=== PATIENT | male | born 1950 | race Caucasian/White ===

== ENCOUNTER 2020-07-22 07:54 | Inpatient (IN) ==
--- NOTE | 2020-06-30 11:25 | PAT Medication Instructions ---
Medication Instructions Date of Service June 30, 2020 Home Medications albuterol sulfate 1 inh INHALATION QID PRN aspirin [Aspir-81] 81 mg PO QAM atorvastatin 80 mg PO HS bisoprolol fumarate 5 mg PO Q2D budesonide-formoterol [Symbicort] 2 puff INHALATION BID diclofenac sodium 1 applic TOPICAL BID duloxetine 30 mg PO QAM empagliflozin [Jardiance] 10 mg PO QAM furosemide 20 mg PO QAM gabapentin 600 mg PO Q8H ipratropium-albuterol 3 ml INHALATION Q4H PRN losartan 50 mg PO QAM ] metformin 1,000 mg PO BID tramadol 50 mg PO TID PRN umeclidinium [Incruse Ellipta] 1 inh INHALATION QAM ASK your prescriber and surgeon aspirin [Aspir-81] 81 mg PO QAM STOP taking 24 hours before surgery diclofenac sodium 1 applic TOPICAL BID DO NOT take the morning of surgery empagliflozin [Jardiance] 10 mg PO QAM furosemide 20 mg PO QAM losartan 50 mg PO QAM metformin 1,000 mg PO BID Take morning of surgery With a small sip of water, OTHERWISE NOTHING TO EAT OR DRINK AFTER MIDNIGHT: albuterol sulfate 1 inh INHALATION QID PRN (use if needed; please bring rescue inhaler with you to hospital day of surgery if possible) bisoprolol fumarate 5 mg PO Q2D (if scheduled to take day of surgery) budesonide-formoterol [Symbicort] 2 puff INHALATION BID duloxetine 30 mg PO QAM gabapentin 600 mg PO Q8H ipratropium-albuterol 3 ml INHALATION Q4H PRN (if needed) tramadol 50 mg PO TID PRN (okay to take up to 4 hours prior to surgery if needed) umeclidinium [Incruse Ellipta] 1 inh INHALATION QAM Take evening before surgery albuterol sulfate 1 inh INHALATION QID PRN (if needed) atorvastatin 80 mg PO HS budesonide-formoterol [Symbicort] 2 puff INHALATION BID gabapentin 600 mg PO Q8H ipratropium-albuterol 3 ml INHALATION Q4H PRN (if needed) metformin 1,000 mg PO BID tramadol 50 mg PO TID PRN (if needed) Other Notes If you have any questions please call us at [phone] or [phone] or [phone] or [phone]
--- NOTE | 2020-07-04 12:30 | Anesthesiology Consultation ---
Date of Service July 04, 2020 Assessment & Plan (1) Encounter for pre-operative examination: Chart Review Chart Review: Pending: Refer to Additional Notes / Consult section (pending stress test, final cardiac clearance, pulm office visit note, PCP clearance and preop Covid testing ) and Patient seen in Pre Admission Testing - Awaiting stress test 07/08 and final cardiac clearance - Pulm office visit (07/06) and PCP clearance (07/11) - Check BSG AM DOS Per PAT appt on 07/04/20, pt relocated and moved from [place] to [facility] on 06/11/20 (to be closer to family). No known Covid positive contacts or Covid related symptoms. No known Covid infection in the past 90 days. Educated patient to follow up with surgeon's office regarding Covid testing. Educated on importance of self quarantining, social distancing and wearing mask in public both for the patient and household contacts. Pt seen by cardio 06/29/20= seen for cardiac evaluation with anticipated back surgery. Pt with hx of NSTEMI with 3 cardiac stents in 2013. Recently moved to [facility]. No recent anginal symptoms and activity level substantially limited secondary to underlying back pain and neurogenic claudication. "Dobutamine stress echocardiography will be ordered to assess structural heart and exclude profound ischemia. No changes made in medical regimen. Ultimate goal to proceed with surgery as planned" Teaching & Discussion Pre-Anesthesia Teaching/Discussion Notes: Instructed NPO after midnight before surgery,except medications with 15 cc of water. Medication instructions provided according to the PAT guidelines. History Surgery Operation Date: 07/22/20 11:05 Proposed Procedures p L3-S1 Decompression and Fusion, Spinal Cord Monitoring - Rodolfo Meyer DO Height/Weight Height: 5 ft 4 in Weight: 109.3 kg Allergies Allergy/AdvReac Type Severity Reaction Status Date / Time No Known Allergies Allergy Verified 06/27/20 12:43 Medications Home Medications Medication Instructions Recorded Confirmed Last Taken albuterol sulfate 1 inh INHALATION QID PRN 06/27/20 06/27/20 Unknown aspirin [Aspir-81] 81 mg PO QAM 06/27/20 06/27/20 Unknown atorvastatin 80 mg PO HS 06/27/20 06/27/20 Unknown bisoprolol fumarate 5 mg PO Q2D 06/27/20 06/27/20 Unknown budesonide-formoterol [Symbicort] 2 puff INHALATION BID 06/27/20 06/27/20 Unknown diclofenac sodium 1 applic TOPICAL BID 06/27/20 06/27/20 Unknown duloxetine 30 mg PO QAM 06/27/20 06/27/20 Unknown empagliflozin [Jardiance] 10 mg PO QAM 06/27/20 06/27/20 Unknown furosemide 20 mg PO QAM 06/27/20 06/27/20 Unknown gabapentin 600 mg PO Q8H 06/27/20 06/27/20 Unknown ipratropium-albuterol 3 ml INHALATION Q4H PRN 06/27/20 06/27/20 Unknown losartan 50 mg PO QAM 06/27/20 06/27/20 Unknown metformin 1,000 mg PO BID 06/27/20 06/27/20 Unknown tramadol 50 mg PO TID PRN 06/27/20 06/27/20 Unknown umeclidinium [Incruse Ellipta] 1 inh INHALATION QAM 06/27/20 06/27/20 Unknown Past Medical History Medical History (Updated 07/04/20 @ 13:04 by Marcia Kramer PA-C) CAD (coronary artery disease) S/p 3 stents in 2013 to prox Cx and RCA Chronic obstructive pulmonary disease Well controlled and stable per patient Diabetes mellitus, type 2 Stable - fasting glucose usually in 130s GERD (gastroesophageal reflux disease) Well controlled and stable History of kidney stones No current issues Hyperlipidemia Hypertension Myocardial Infarction 2013 VU (obstructive sleep apnea) Possible Exercise / Class Metabolic Activity III < 4 Walking/Shop/Light housework (one flight of stairs - no chest pain, would get SOB ) Past Family History Family History Mother Family history of diabetes mellitus Father Family history of diabetes mellitus Other No family history of adverse response to anesthesia Past Surgical History Surgical History (Updated 07/04/20 @ 13:04 by Marcia Kramer PA-C) History of amputation of finger Left 2nd finger History of colonoscopy History of esophagogastroduodenoscopy (EGD) History of heart artery stent X 3 (2013 AT [facility] History of tooth extraction Past Anesthesia History No Hx of Anesthesia Complications and No Family Hx of Anesthesia Complications History of PONV No Hx of PONV and No Hx of Motion Sickness Social History Smoking Status: Former smoker tobacco type: cigarettes Do You Dip or Chew Tobacco: No Smoking End Date: 15 YEARS AGO Hx Alcohol Use: No Hx Substance Use: No substance use type: does not use Review of Systems Hx of sleep study - inconclusive per patient. Patient denies chest pain, shortness of breath, dyspnea on exertion, cough, wheezing, palpitations. No hx of seizures, stroke.. No hx of blood clots or blood transfusions Physical Exam Vital Signs VITALS BP 115/71 P 61 TEMP 98.4 SP02 94% RESP 16 Constitutional no acute distress ENMT Mouth: no TMJ clicking Thyromental Distance: > or= 3.5 Finger Breadths (3.5) Mallampati Class: II Missing all teeth Neck + short neck and + thick neck; neck extension not limited Respiratory normal respiratory effort; no respiratory distress Auscultation: lungs clear to auscultation bilaterally and + diminished lung sounds (mildly throughout ); no wheezes Cardiovascular Rate/Rhythm: regular rate and regular rhythm Heart Sounds: no murmur Vessels: no carotid bruit Musculoskeletal Spine: no pain with cervical ROM Extremities: extremities normal to inspection (with exception to left 2nd finger partial amputation ) Psychiatric Orientation: alert Testing Laboratory Results 07/04/20 12:53 07/04/20 12:53 PT 10.1 Seconds (9.0-12.0) 07/04/20 12:53 INR 1.0 (0.9-1.1) 07/04/20 12:53 APTT 24.0 Seconds (21.0-31.0) 07/04/20 12:53 Hemoglobin A1c 6.6 % (4.5-5.6) H 07/04/20 12:53 Urine Color Yellow 07/04/20 12:53 Urine Appearance Clear (Clear) 07/04/20 12:53 Urine pH 5.5 (4.5-7.5) 07/04/20 12:53 Ur Specific [place] 1.032 (1.000-1.030) H 07/04/20 12:53 Urine Protein Negative (Negative) 07/04/20 12:53 Urine Glucose (UA) 3+ (Negative) H 07/04/20 12:53 Urine Ketones Negative (Negative) 07/04/20 12:53 Urine Nitrite Negative (Negative) 07/04/20 12:53 Ur Leukocyte Esterase Negative (Negative) 07/04/20 12:53 Blood Type B Positive 07/04/20 12:53 Antibody Screen NEGATIVE 07/04/20 12:53 Electrocardiogram Date: 07/04/20 Findings: + SB @ (57bpm) Otherwise normal EKG per cardio. Chest X-Ray Date: 07/04/20 Findings: + NAD and + cardiomegaly (borderline )
--- NOTE | 2020-07-04 13:32 | XRay Report ---
XR chest Pre-admission PA/Lat CLINICAL HISTORY: Preoperative evaluation. COMPARISON STUDY: No previous studies for comparison. FINDINGS: Lung volumes are normal. Lungs are clear. There is no pneumothorax or pleural effusion. The re is borderline cardiomegaly. Mediastinal contours are normal. There is no evidence for pulmonary ed delmar. IMPRESSION: No acute cardiopulmonary findings. ACT 112: Negative or not required by law. Electronically signed by: Chai Smith M.D. 07/04/2020 1:31 PM
[2020-07-04 14:04] LABS: Basophils # (auto) 0.03 K/uL (0-0.2); Basophils % (auto) 0.4 %; Eosinophils # (auto) 0.18 K/uL (0-0.5); Eosinophils % (auto) 2.3 %; Hematocrit (blood only) 42.5 % (42-52); Hemoglobin 14.2 g/dL (14.0-18.0); Immature Granulocytes # (auto) 0.01 K/uL (0.00-0.02); Immature Granulocytes % (auto) 0.1 %; Lymphocytes # (auto) 1.41 K/uL (1.2-3.4); Lymphocytes % (auto) 17.7 %; Mean Corpuscular Hemoglobin 29.6 pg (25-34); Mean Corpuscular Hgb Conc 33.4 g/dL (32-36); Mean Corpuscular Volume 88.5 fL (80-100); Mean Platelet Volume 10.8 fL (7.4-10.4); Monocytes # (auto) 0.73 K/uL (0.11-0.59); Monocytes % (auto) 9.2 %; Neutrophils # (auto) 5.59 K/uL (1.4-6.5); Neutrophils % (auto) 70.3 %; Platelet Count 217 K/uL (130-400); RDW Coefficient of Variation 14.5 % (11.5-14.5); White Blood Count 7.95 K/uL (4.8-10.8)
[2020-07-04 14:16] LABS: Appearance Urine Clear (Clear); Bilirubin Urine Negative (Negative); Blood Urine Negative (Negative); Color Urine Yellow; Glucose Urine UA 3+ (Negative); Ketones Urine Negative (Negative); Leukocyte Esterase Urine Negative (Negative); Nitrite Urine Negative (Negative); Protein Urine Negative (Negative); Specific Gravity Urine 1.032 (1.000-1.030); Urobilinogen Urine Negative (Negative); pH Urine 5.5 (4.5-7.5)
[2020-07-04 14:20] LABS: BUN Creatinine Ratio 15.7 (10-20); Calcium 9.1 mg/dl (8.5-10.1); Creatinine Clr Calc Pharmacy 84.7 ml/min; Est GFR (African American) 98.6; Est GFR (Non-African American) 85.1; Potassium 3.8 mmol/L (3.5-5.1)
[2020-07-04 14:21] LABS: Partial Thromboplastin Ratio 0.9; Prothrombin Time 10.1 Seconds (9.0-12.0)
--- NOTE | 2020-07-04 14:46 | Electrocardiogram Report ---
Test Reason : Blood Pressure : / mmHG Vent. Rate : 057 BPM Atrial Rate : 057 BPM P-R Int : 196 ms QRS Dur : 090 ms QT Int : 404 ms P-R-T Axes : 000 069 054 degrees QTc Int : 393 ms Sinus bradycardia Otherwise normal ECG No previous ECGs available Confirmed by Anirudh Chaparro ([id number]) on 07/04/2020 2:46:31 PM Referred By: Rodolfo Meyer Confirmed By:Anirudh Chaparro
[2020-07-05 05:59] LABS: Estimated Average Glucose 143 mg/dl; Hemoglobin A1C 6.6 % (4.5-5.6)
[~2020-07-22 07:54] MED LIST: ACETAMINOPHEN 500 MG TAB PO SCH; CeleBREX 200 MG CAP PO SCH; GABAPENTIN 300 MG CAP PO SCH; LR 15ML/HR IV SCH; ceFAZolin 2000MG 2,000 MG/15 ML SYR IV SCH
[2020-07-22] MEDS ORDERED: DEXAMETHASONE SOD INJ 4 MG/ML VIAL ONE (08:12)
[2020-07-22] MEDS ORDERED: fentaNYL citrate 100 MCG/2 ML VIAL ONE ×2 (08:12→08:13)
[2020-07-22] MEDS ORDERED: GLYCOPYRROLATE 0.2 MG/ML VIAL ONE (08:12)
[2020-07-22] MEDS ORDERED: ROCURONIUM BROMIDE 10 MG/ML 5 ML VIAL IV ONE ×3 (08:12→10:48)
[2020-07-22] MEDS ORDERED: ONDANSETRON INJ 2 MG/ML 2 ML VIAL ONE (08:12)
[2020-07-22] MEDS ORDERED: PROPOFOL IV EMULSION 10 MG/ML 20 ML VIAL IV ONE (08:12)
[2020-07-22] MEDS ORDERED: NEOSTIGMINE METHYLSULFATE 1 MG/ML 10ML VIAL ONE (08:12)
--- NOTE | 2020-07-22 09:38 | History & Physical Bridge Note ---
Date of Service July 22, 2020 History & Physical Bridge Note I have examined the patient, reviewed the History & Physical and in the interval since the performance of the History & Physical I have noted the following changes of clinical significance: no changes noted
--- NOTE | 2020-07-22 09:39 | History & Physical Report ---
Date of Service July 22, 2020 Assessment & Plan (1) Neurogenic claudication due to lumbar spinal stenosis: Admission and Anticipated Discharge Date Admission Date: L3-S1 decompression fusion History of Present Illness Chief Complaint: Back and bilateral leg pain Primary Care Provider: Rahat Strickland MD This is a 70-year-old male presents with chronic persistent back and bilateral leg pain. Failing since course of nonoperative care is here for surgical invention. Allergies Allergy/AdvReac Type Severity Reaction Status Date / Time No Known Allergies Allergy Verified 07/22/20 08:22 Home Medications Medication Instructions Recorded Confirmed Type albuterol sulfate 1 inh INHALATION QID PRN 06/27/20 07/22/20 History aspirin [Aspir-81] 81 mg PO QAM 06/27/20 07/22/20 History atorvastatin 80 mg PO HS 06/27/20 07/22/20 History bisoprolol fumarate 5 mg PO Q2D 06/27/20 07/22/20 History budesonide-formoterol [Symbicort] 2 puff INHALATION BID 06/27/20 07/22/20 History diclofenac sodium 1 applic TOPICAL BID 06/27/20 07/22/20 History duloxetine 30 mg PO QAM 06/27/20 07/22/20 History empagliflozin [Jardiance] 10 mg PO QAM 06/27/20 07/22/20 History furosemide 20 mg PO QAM 06/27/20 07/22/20 History gabapentin 600 mg PO Q8H 06/27/20 07/22/20 History ipratropium-albuterol 3 ml INHALATION Q4H PRN 06/27/20 07/22/20 History losartan 50 mg PO QAM 06/27/20 07/22/20 History metformin 1,000 mg PO BID 06/27/20 07/22/20 History tramadol 50 mg PO TID PRN 06/27/20 07/22/20 History umeclidinium [Incruse Ellipta] 1 inh INHALATION QAM 06/27/20 07/22/20 History Past Med/Surg History Medical History (Updated 07/22/20 @ 09:38 by Rodolfo Meyer DO) CAD (coronary artery disease) S/p 3 stents in 2013 to prox Cx and RCA Chronic obstructive pulmonary disease Well controlled and stable per patient Diabetes mellitus, type 2 Stable - fasting glucose usually in 130s GERD (gastroesophageal reflux disease) Well controlled and stable History of kidney stones No current issues Hyperlipidemia Hypertension Myocardial Infarction 2013 VU (obstructive sleep apnea) Possible Surgical History History of amputation of finger Left 2nd finger History of colonoscopy History of esophagogastroduodenoscopy (EGD) History of heart artery stent X 3 (2013 AT [facility] History of tooth extraction Family History Mother Family history of diabetes mellitus Father Family history of diabetes mellitus Other No family history of adverse response to anesthesia Social History Smoking Status: Former smoker Smoking End Date: 15 YEARS AGO; Second Hand Exposure: No; Do You Dip or Chew Tobacco: No; Tobacco Cessation Education Requested by Patient: No Hx Alcohol Use: No Hx Substance Use: No Preferred Language: Mosotho Test Consultant Required: No Beliefs That Will Affect Care: None Current Living Situation: Alone Feels Safe at Home: Yes Safety Concerns: Feels Safe At This Time Assistive Devices: Denture - Upper, Glasses and Nebulizer Physical Exam Physical Exam: Patient is alert and oriented Heart regular in rhythm Lungs clear to auscultation Results & Data ([facility]) Vital Signs (Past 12 Hours) Vital Signs Temp Pulse Resp BP Pulse Ox 07/22/20 08:48 36.8 C 84 20 174/90 H 95
[2020-07-22] MEDS ORDERED: BUPIVACAINE/EPINEPHRINE 0.5% MPF 1:200,000 30 ML VIAL ONE (10:02)
[2020-07-22] MEDS ORDERED: HYDROmorphone INJ 2 MG/ML SYR/VIAL IV PRN (10:06)
[2020-07-22] MEDS ORDERED: ATROPINE SULFATE 0.1 MG/ML 10ML SYR IV PRN (10:06)
[2020-07-22] MEDS ORDERED: ONDANSETRON INJ 2 MG/ML 2 ML VIAL IV PRN ×2 (10:06→14:22)
[2020-07-22] MEDS ORDERED: ePHEDrine sulfate 50 MG/ML AMP IV PRN (10:06)
[2020-07-22] MEDS ORDERED: PHENYLEPHRINE 100MCG/ML 5ML SYR ONE (10:46)
[2020-07-22] MEDS ORDERED: FLOSEAL HEMOSTATIC MATRIX 10ML TOP ONE (11:33)
--- NOTE | 2020-07-22 12:18 | Operative Report ---
Post Operative Report Pre & Post Diagnosis Operation Date: 07/22/20 09:25 Pre-Op Diagnosis: Spinal Stenosis, Lumbar Region with Neurogenic Claudication Spondylolisthesis L4-L5 Morbid obesity Post-Op Diagnosis: Same I identified the patient and participated in the time-out.: Yes Procedure Operation Date: 07/22/20 09:25 Actual Procedures #1 lumbar decompression with bilateral medial facetectomies and foraminotomies L3-4 and L4-5 per #2 posterior spinal fusion L4-L5. #3 placement of posterior instrumentation L4-L5. #4 interbody fusion L4-5. #5 placement peek cage 14 x 26 mm at L4-5. #6 placement locally harvested morselized autograft in the posterior gutters. #7 placement infuse collagen sponge, master graft in the posterior lateral gutters and I factor interbody space. Surgeon Rodolfo Meyer, DO Ruling Machine Feeder Benjamin Ryan Estimated Blood Loss 350 Findings See Below The patient is 5 foot 4 inches tall weighing over 108 kg with a BMI of 41. The patient's body habitus did create significant technical difficulty requiring her deepest retractors longus instruments in order to perform his procedure. This had at least 50% increase to the operative time. Specimens None Indications This is a 70-year-old male who presents with above-mentioned diagnosis after failing course of nonoperative care is here for the above-mentioned procedure. Description of Procedure Patient was met with identified informed consent obtained. Patient was then taken to the operative suite underwent ablation placed in a prone position injectable top Timmy frame. All bony prominences well-padded eyes inspected to ensure no external pressure placed upon the. This point the lumbar spine was prepped and draped in a sterile fashion. Sharp dissection with the assistance of Bovie cautery performed down to and exposing the lamina and transverse processes of L4 and L5 bilaterally. From a caudal cephalad fashion complete laminectomy L4 partial laminectomy L3 was performed including bilateral medial facetectomies and foraminotomies addressing severe spinal stenosis. Pedicle screws then placed in L4 and L5 bilaterally with the assistance of fluoroscopy and the properly sized winsome placed. By way of a transforaminal approach on the left complete discectomy was performed endplates curetted to subcortical being bone and a 14 x 26 mm peek cage filled with I factor tapped in position. The rods then locked in final position bilaterally. The transverse processes of L4 and L5 burred to subcortical bleeding bone. Infuse collagen sponge master graft local autograft was placed in the posterior gutters. 15 round RENÉ drain inserted. The incision was then closed with 1 Vicryl fascia 2-0 Vicryl subcutaneously and 4 Monocryl for final skin closure. Steri-Strip sterile dressing was placed. Patient awakened taken to PACU in stable condition. Please note spinal cord monitoring was utilized at the procedure no changes noted. Lastly Benjamin Ryan was present at the entire surgery involved the patient positioning complex portions of the surgery and final skin closure. I attest to the content of the Intraoperative Record and any orders documented therein. Any exceptions are noted below.
[2020-07-22] MEDS: fentaNYL citrate 100 MCG/2 ML VIAL IV PRN ×2 (13:02→13:07)
--- NOTE | 2020-07-22 13:32 | Fluoroscopy Report ---
INTRAOPERATIVE RADIOGRAPHS CLINICAL HISTORY: L4-L5 spinal fusion. Fluoroscopy time: 22 seconds. FINDINGS: 2 spot fluoroscopic views of the lumbar spine are presented. There has been discectomy at L 4-L5 with laminectomy and posterior fusion at this level. Interpedicular screws are in place. The ort hopedic hardware appears intact. IMPRESSION: Intraoperative L4-L5 spinal fusion images as above. Electronically signed by: Erik Vines M.D. 07/22/2020 1:31 PM
[2020-07-22] MEDS ORDERED: DO NOT ADMINISTER FLU VACCINE PRN (14:22)
[2020-07-22] MEDS ORDERED: ACETAMINOPHEN 1,000 MG/100 ML VIAL IV PRN (14:22)
[2020-07-22] MEDS ORDERED: ALBUT/IPRATROP 3MG/0.5MG NEB 3 ML VIAL INH PRN (14:22)
[2020-07-22] MEDS ORDERED: diphenhydrAMINE Capsule 25 MG CAP PO PRN (14:22)
[2020-07-22] MEDS ORDERED: METOCLOPRAMIDE HCL INJ 5 MG/ML 2 ML VIAL IV PRN (14:22)
[2020-07-22] MEDS ORDERED: HYDROmorphone INJ 0.5 MG/0.5 ML SYR IV PRN (14:22)
[2020-07-22] MEDS ORDERED: hydrOXYzine HCl 25 MG TAB PO PRN (14:22)
[2020-07-22] MEDS ORDERED: DO NOT ADMINISTER PNEUMOCOCCAL VACCINE PRN (14:22)
[2020-07-22] MEDS ORDERED: LORazepam 0.5 MG/1 ML VIAL IV PRN (14:22)
[2020-07-22] MEDS ORDERED: MAGNESIUM HYDROXIDE SUSP 30 ML UDC PO PRN (14:22)
[2020-07-22] MEDS ORDERED: bisacodyL 10 MG SUPP PR PRN (14:22)
[2020-07-22] MEDS ORDERED: NALOXONE HCL 0.4 MG/1 ML VIAL/CARP IV PRN (14:22)
[2020-07-22] MEDS ORDERED: ACETAMINOPHEN 500 MG TAB PO PRN (14:22)
[2020-07-22] MEDS ORDERED: ONDANSETRON 4 MG OD TAB PO PRN (14:22)
[2020-07-22] MEDS ORDERED: SOD PHOSPHATE/SOD BIPHOSPHATE ENEMA 132 ML BTL PR PRN (14:22)
[2020-07-22] MEDS ORDERED: PROMETHAZINE HCL 12.5 MG in SODIUM CHLORIDE 0.9% 50 ML IV PRN (14:22)
[2020-07-22] MEDS ORDERED: ALUMINUM/MAGNESIUM SUSP 30 ML UDC PO PRN (14:22)
[2020-07-22] MEDS ORDERED: ALBUTEROL HFA 8 GM INHALER INH PRN (14:22)
[2020-07-22] MEDS ORDERED: FAMOTIDINE 20 MG TAB PO PRN (14:22)
[2020-07-22] MEDS ORDERED: PHARMACY GLYCEMIC MGMT CONSULT PRN (14:37)
[2020-07-22] MEDS ORDERED: GLUCOSE 40% GEL 15 GM TUBE PO PRN (14:45)
[2020-07-22] MEDS ORDERED: GLUCOSE 10 TABS/TUBE PO PRN (14:45)
[2020-07-22] MEDS ORDERED: DEXTROSE 50% 50 ML SYRINGE IV PRN (14:45)
[2020-07-22] MEDS ORDERED: CARBOHYDRATES FOR HYPOGLYCEMIA PO PRN (14:45)
[2020-07-22] MEDS ORDERED: GLUCAGON FOR INJ 1 MG VIAL IM PRN (14:45)
[2020-07-22] MEDS: SODIUM CHLORIDE 0.9% 1000ML 1,000 ML IV SCH ×2 (14:52→21:02)
--- NOTE | 2020-07-22 14:55 | Pharmacy Report ---
Pharmacy Glycemic Short Note 2 - Date of Service July 22, 2020 - Glycemic Short BSG Results (Last 24 hours): 07/22/20 07/22/20 08:21 13:35 POC Glucose 117 H 126 H OUTPATIENT ANTIDIABETIC REGIMEN: * Metformin 1000 mg PO BIDM * Jardiance 10 mg PO daily * HbA1c: 6.6% (07/04/20) ASSESSMENT: * RR is a 70 year old male POD #0 s/p L4-5 decompression/fusion * Received 4 mg IV dexamethasone in OR * Fasting BSG of 117 mg/dL * Postoperative BSG of 126 mg/dL * A1c well controlled with multiple oral agents * Will order conservative Lantus dose today to help cover steroids PLAN FOR INPATIENT GLYCEMIC CONTROL: * Hold outpatient oral diabetes medications - consider resuming metformin tomorrow if renal function okay * Basal insulin * Lantus 15 units (~0.15 unit/kg) SC x 1 to cover IV dexamethasone * Bolus insulin * NovoLog per scale ACHS or Q6hrs while NPO * Goal Range: Low 110 mg/dL - High 140 mg/dL * Correction Factor: 20 mg/dL/unit * Nutritional / Prandial insulin per carb ratio of 1 unit per 7 grams CHO consumed PLAN FOR DISCHARGE: * A1c of 6.6% demonstrates excellent outpatient glycemic control * Continue current outpatient regimen at discharge
[2020-07-22] MEDS ORDERED: INSULIN GLARGINE SOLOSTAR 100 UNITS/ML 3 ML PEN SC ONE (15:00)
[2020-07-22] MEDS ORDERED: LANTUS PER UNIT CHARGE SQ ONE (15:00)
--- NOTE | 2020-07-22 15:28 | Anesthesiology Progress Note ---
Date of Service July 22, 2020 Anesthesia Post Procedure Vital Signs Vital Signs: Temp Pulse Pulse Resp BP Pulse Ox 07/22/20 15:09 36.8 C 80 16 152/77 H 92 07/22/20 13:55 70 18 115/70 99 07/22/20 13:50 70 21 102/71 100 07/22/20 13:40 68 18 105/70 99 07/22/20 13:30 36.3 C L 66 17 113/66 97 07/22/20 13:20 36.3 C L 68 14 98/62 L 97 07/22/20 13:10 70 18 99/62 L 92 07/22/20 13:00 73 18 116/87 96 07/22/20 12:50 36.2 C L 76 16 140/80 95 07/22/20 12:43 36.2 C L 79 16 165/69 H 97 07/22/20 08:48 36.8 C 84 20 174/90 H 95 Pain Intensity Lower Back: Pain Intensity: 4 Transfer of Care Handoff Completed per policy Notes Mental Status: alert / awake / arousable and participated in evaluation Patient Amnestic to Procedure: Yes Nausea / Vomiting: adequately controlled Pain: adequately controlled Airway Patency, RR, SpO2: stable & adequate BP & HR: stable & adequate Hydration State: stable & adequate Anesthetic Complications: no major complications apparent and Pt Satisfied with anesthetic care
[2020-07-22] MEDS: INSULIN ASPART 100 UNITS/ML 3 ML PEN SC SCH ×3 (15:36→21:05)
[2020-07-22] MEDS: GABAPENTIN 600 MG TAB PO SCH ×2 (15:38→21:02)
--- NOTE | 2020-07-22 16:07 | Consultation ---
Date of Consultation July 22, 2020 Assessment & Plan (1) Status post lumbar surgery: Post op day# 0 S/P L3-L5 decompression & fusion by Dr Meyer EB#350ml -pain management per ortho -wound management per ortho -PT/OT as appropriate -DVT prophylaxis per ortho -incentive spirometry -monitor H&H for acute blood loss anemia; pre-op Hgb: 14 (2) CAD (coronary artery disease): S/P stents x 3 No CP, SOB -Continue aspirin, bisoprolol, losartan, atorvastatin (3) Hypertension: -Continue losartan, bisoprolol -Hold lasix and reassess tomorrow (4) Diabetes mellitus, type 2: A1c: 6.6 on 06/27/20 -Hold home oral medications -Glycemic pharmacy on board, appreciate glycemic management (5) Chronic obstructive pulmonary disease: No signs acute exacerbation -Continue home inhalers DVT Prophylaxis -SCDs per ortho Disposition per primary service Follows with Dr Strickland for routine care Pt was seen and care coordinated with Dr Hawkins. See addendum Thank you for this consultation. We will follow the patient with you during their hospital stay. You can reach a member of the [place] [facility]ist Team 24/09 via pager @ [phone]. Supervising Physician Co-Signing Physician Notes I have seen and examined the patient and have discussed the case with the provider above. I agree with the assessment and plan as stated. 70 yo M with back and bilateral leg pain who underwent a back surgery by Dr. Meyer today. He is moving very well reporting minimal pain post operatively. He actually reflexively caught the remote control by reaching out forward for it without too much difficulty. He is hungry and awaiting dinner at this point. ROS is negative. He has CAD, COPD and DMII. Denies leg numbness or pain at this time. Physical exam reveals a WNWD man in NAD who has a normal heart and lung exam. Parsons catheter in place. Otherwise agree [facility] exam as documented above. Post op labs in am for monitoring . Cont insulin post-operatively for goal blood sugar <120 fasting and <180 post prandial. Thank you for this consultation. We will continue to follow him throughout the remainder of his stay. DO Ross History of Present Illness Requesting Physician: Dr Meyer Reason for Consultation: Post op medical management Attending Physician: Rodolfo M Betsy, DO History of Present Illness Pt is 70 y/o M with PMH DM II, CAD s/p stents, HTN, HLD, COPD, obesity seen in medical consultation s/p decompression and fusion L3- L5 today by Dr. Meyer. Postop patient reports pain controlled. Reports prior to surgery had leg paresthesias which she feels have slightly decreased. Denies headache, dizziness, shortness of breath, chest pain. Has Parsons catheter in place. Last BM yesterday. Denies fever/chills, neck pain, palpitations, cough, sore throat, abdominal pain, extremity edema, rashes, urinary symptoms. Allergies Allergy/AdvReac Type Severity Reaction Status Date / Time No Known Allergies Allergy Verified 07/22/20 08:22 Home Medications Medication Instructions Recorded Confirmed Type albuterol sulfate 1 inh INHALATION QID PRN 06/27/20 07/22/20 History aspirin [Aspir-81] 81 mg PO QAM 06/27/20 07/22/20 History atorvastatin 80 mg PO HS 06/27/20 07/22/20 History bisoprolol fumarate 5 mg PO Q2D 06/27/20 07/22/20 History budesonide-formoterol [Symbicort] 2 puff INHALATION BID 06/27/20 07/22/20 History diclofenac sodium 1 applic TOPICAL BID 06/27/20 07/22/20 History duloxetine 30 mg PO QAM 06/27/20 07/22/20 History empagliflozin [Jardiance] 10 mg PO QAM 06/27/20 07/22/20 History furosemide 20 mg PO QAM 06/27/20 07/22/20 History gabapentin 600 mg PO Q8H 06/27/20 07/22/20 History ipratropium-albuterol 3 ml INHALATION Q4H PRN 06/27/20 07/22/20 History losartan 50 mg PO QAM 06/27/20 07/22/20 History metformin 1,000 mg PO BID 06/27/20 07/22/20 History tramadol 50 mg PO TID PRN 06/27/20 07/22/20 History umeclidinium [Incruse Ellipta] 1 inh INHALATION QAM 06/27/20 07/22/20 History Patient History Medical History (Updated 07/22/20 @ 16:16 by Quyen Cordoba PA-C) CAD (coronary artery disease) S/p 3 stents in 2014 to prox Cx and RCA Chronic obstructive pulmonary disease Well controlled and stable per patient Diabetes mellitus, type 2 Stable - fasting glucose usually in 130s GERD (gastroesophageal reflux disease) Well controlled and stable History of kidney stones No current issues Hyperlipidemia Hypertension Myocardial Infarction 2013 VU (obstructive sleep apnea) Possible Surgical History (Updated 07/22/20 @ 16:16 by Quyen Cordoba PA-C) History of amputation of finger Left 2nd finger History of colonoscopy History of esophagogastroduodenoscopy (EGD) History of heart artery stent X 3 (2013 AT [facility] History of tooth extraction Family History Mother Family history of diabetes mellitus Father Family history of diabetes mellitus Other No family history of adverse response to anesthesia Social History Smoking Status: Former smoker Smoking End Date: 15 YEARS AGO; Second Hand Exposure: No; Do You Dip or Chew Tobacco: No; Tobacco Cessation Education Requested by Patient: No Hx Alcohol Use: No Hx Substance Use: No Preferred Language: Haitian [employer] Required: No Beliefs That Will Affect Care: None Current Living Situation: Alone Feels Safe at Home: Yes Safety Concerns: Feels Safe At This Time Assistive Devices: Denture - Upper, Glasses and Nebulizer Review of Systems Review of Systems: All systems reviewed & are unremarkable except as noted in HPI & below Physical Exam Physical Exam: General: no distress, obese Head: normocephalic, atraumatic Eyes: conjunctiva non-injected, anicteric ENT: normal inspection external ears, nose, mucous membranes moist Neck: supple, trachea midline Lungs: clear, no respiratory distress, no wheezing/rhonchi/rales CV: RRR, no murmur, no pretibial edema Abd: normal BS, soft, protuberant, non-tender Back: surgical dressing in place, RENÉ drain in place with serosanguineous drainage Ext: no cyanosis, no calf tenderness; pedal pushes and pulls intact bilaterally, sensation to light touch intact, distal pulses intact Neuro: A&O x 3, no focal deficits noted, normal affect Skin: warm, dry Results & Data ([facility]) Vital Signs (Past 12 Hours) Vital Signs Temp Pulse Pulse Resp BP Pulse Ox 07/22/20 15:09 36.8 C 80 16 152/77 H 92 07/22/20 14:15 72 18 114/62 97 07/22/20 13:55 70 18 115/70 99 07/22/20 13:50 70 21 102/71 100 07/22/20 13:40 68 18 105/70 99 07/22/20 13:30 36.3 C L 66 17 113/66 97 07/22/20 13:20 36.3 C L 68 14 98/62 L 97 07/22/20 13:10 70 18 99/62 L 92 07/22/20 13:00 73 18 116/87 96 07/22/20 12:50 36.2 C L 76 16 140/80 95 07/22/20 12:43 36.2 C L 79 16 165/69 H 97 07/22/20 08:48 36.8 C 84 20 174/90 H 95 Medications Administered Current Inpatient Medications Acetaminophen (Acetaminophen 500 Mg Tab) 1,000 mg PO PREOP HALEY Stop: 07/22/20 18:00 Last Admin: 07/22/20 09:04 Dose: 1,000 mg Documented by: Acetaminophen (Acetaminophen 500 Mg Tab) 1,000 mg PO Q8H PRN PRN Reason: MILD Pain Scale 1,2,3 & Pre PT Stop: 08/21/20 14:21 Al Hydrox/Mg Hydrox/Simethicone (Aluminum/Magnesium Susp 30 Ml Udc) 30 ml PO Q6H PRN PRN Reason: Dyspepsia Stop: 08/21/20 14:21 Albuterol (Albuterol Hfa 8 Gm Inhaler) 1 puffs INH QIDR PRN PRN Reason: SHORT OF BREATH Stop: 08/21/20 14:21 Albuterol (Albut/Ipratrop 3mg/0.5mg Neb 3 Ml Vial) 3 ml INH Q4H PRN PRN Reason: SHORT OF BREATH Stop: 08/21/20 14:21 Aspirin (Aspirin 81 Mg Ectab) 81 mg PO QAM HALEY Stop: 08/22/20 08:59 Atorvastatin Calcium (Atorvastatin 40 Mg Tab) 80 mg PO HS HALEY Stop: 08/21/20 20:59 Bisacodyl (Bisacodyl 10 Mg Supp) 10 mg WV DAILY PRN PRN Reason: Constipation Stop: 08/21/20 14:21 Bisoprolol Fumarate (Bisoprolol Fumarate 5 Mg Tab) 5 mg PO Q2D HALEY Stop: 08/22/20 08:59 Celecoxib (Celebrex 200 Mg Cap) 200 mg PO PREOP HALEY Stop: 07/22/20 18:00 Last Admin: 07/22/20 09:04 Dose: 200 mg Documented by: Dextrose (Dextrose 50% 50 Ml Syringe) 25 - 50 ml IV UD PRN; Protocol PRN Reason: Hypoglycemia Protocol Stop: 08/21/20 14:44 Diphenhydramine HCl (Diphenhydramine Capsule 25 Mg Cap) 25 mg PO Q6H PRN PRN Reason: Allergic Rhinitis/Insomnia Stop: 08/21/20 14:21 Duloxetine HCl (Duloxetine Hcl 30 Mg Cap) 30 mg PO QAM HALEY Stop: 08/22/20 08:59 Famotidine (Famotidine 20 Mg Tab) 20 mg PO Q12H PRN PRN Reason: Dyspepsia Stop: 08/21/20 14:21 Fluticasone/Vilanterol (Fluticasone/Vilanterol 100/25mcg 14 Puffs/Inhaler) 1 puffs INH DAILY HALEY; Protocol Stop: 08/22/20 08:59 Furosemide (Furosemide 20 Mg Tab) 20 mg PO QAM HALEY Stop: 08/22/20 08:59 Gabapentin (Gabapentin 300 Mg Cap) 300 mg PO PREOP HALEY Stop: 07/22/20 18:00 Last Admin: 07/22/20 09:04 Dose: 300 mg Documented by: Gabapentin (Gabapentin 600 Mg Tab) 600 mg PO Q8 HALEY Stop: 08/21/20 14:59 Last Admin: 07/22/20 15:38 Dose: 600 mg Documented by: Glucagon (Glucagon For Inj 1 Mg Vial) 1 mg IM UD PRN; Protocol PRN Reason: Hypoglycemia Protocol Stop: 08/21/20 14:44 Glucose (Glucose 40% Gel 15 Gm Tube) 15 - 30 gm PO UD PRN; Protocol PRN Reason: Hypoglycemia Protocol Stop: 08/21/20 14:44 Glucose (Glucose 10 Tabs/Tube) 4 - 8 tabs PO UD PRN; Protocol PRN Reason: Hypoglycemia Protocol Stop: 08/21/20 14:44 Hydromorphone HCl (Hydromorphone Inj 0.5 Mg/0.5 Ml Syr) 0.5 mg IV Q3H PRN PRN Reason: MOD pain (scale 4-6) & Pre PT Stop: 08/05/20 14:21 Hydromorphone HCl (Hydromorphone Inj 1 Mg/Ml Syringe) 1 mg IV Q3H PRN PRN Reason: severe pain (scale 7-10) Stop: 08/05/20 14:21 Hydroxyzine HCl (Hydroxyzine Hcl 25 Mg Tab) 25 mg PO Q8H PRN PRN Reason: Anxiety Stop: 08/21/20 14:21 Lactated Ringer's (Lr) 1,000 mls @ 15 mls/hr IV .Q24H HALEY Stop: 07/23/20 05:59 Last Infusion: 07/22/20 10:16 Dose: Infused Documented by: Cefazolin Sodium (Ancef 2000mg) 2,000 mg in 15 mls @ 3.75 mls/min IV PREOP HALEY; Protocol Stop: 07/22/20 18:00 Last Admin: 07/22/20 14:25 Dose: Not Given Documented by: Acetaminophen (Ofirmev) 1,000 mg in 100 mls @ 400 mls/hr IV Q8H PRN PRN Reason: MILD Pain Rating 1,2,3 Stop: 07/23/20 14:21 Sodium Chloride (Nss 1000ml) 1,000 mls @ 150 mls/hr IV .Q6H40M HALEY Stop: 08/21/20 14:21 Last Admin: 07/22/20 14:52 Dose: 150 mls/hr Documented by: Promethazine HCl 12.5 mg/ (Sodium Chloride) 50.5 mls @ 204 mls/hr IV Q6H PRN PRN Reason: Nausea &/or Vomiting Stop: 08/21/20 14:21 Lorazepam (Ativan) 0.5 mg in 1 mls @ 0.5 mls/min IV Q8H PRN PRN Reason: Sedation/Anxiety Stop: 08/21/20 14:21 Cefazolin Sodium (Ancef 2000mg) 2,000 mg in 15 mls @ 3.75 mls/min IV Q8H HALEY; Protocol Stop: 07/23/20 03:03 Influenza Virus Vaccine Quadrival (Do Not Administer Flu Vaccine) 1 ea N/A PRN PRN PRN Reason: Notification Stop: 08/21/20 14:21 Insulin Aspart (Insulin Aspart 100 Units/Ml 3 Ml Pen) 0 units SC ACHS HALEY Stop: 08/21/20 14:59 Last Admin: 07/22/20 15:36 Dose: Not Given Documented by: Lorazepam (Lorazepam 0.5 Mg Tab) 0.5 mg PO Q8H PRN PRN Reason: Sedation/Anxiety Stop: 08/21/20 14:21 Losartan Potassium (Losartan Potassium 50 Mg Tab) 50 mg PO QAM HALEY Stop: 08/22/20 08:59 Magnesium Hydroxide (Magnesium Hydroxide Susp 30 Ml Udc) 30 ml PO DAILY PRN PRN Reason: Constipation Stop: 08/21/20 14:21 Metoclopramide HCl (Metoclopramide Hcl Inj 5 Mg/Ml 2 Ml Vial) 10 mg IV Q6H PRN PRN Reason: Nausea &/or Vomiting Stop: 08/21/20 14:21 Miscellaneous (Carbohydrates For Hypoglycemia ) 15 - 30 gm PO UD PRN PRN Reason: Hypoglycemia Treatment Stop: 08/21/20 14:44 Miscellaneous Information (Pharmacy Glycemic Mgmt Consult) 1 ea N/A UD PRN PRN Reason: Consult Stop: 08/21/20 14:36 Naloxone HCl (Naloxone Hcl 0.4 Mg/1 Ml Vial/Carp) 0.1 mg IV Q5M PRN; Protocol PRN Reason: Oversedation/Resp Depression Stop: 08/21/20 14:21 Ondansetron HCl (Ondansetron Inj 2 Mg/Ml 2 Ml Vial) 4 mg IV Q6H PRN PRN Reason: Nausea &/or Vomiting Stop: 08/21/20 14:21 Ondansetron HCl (Ondansetron 4 Mg Od Tab) 4 mg PO Q6H PRN PRN Reason: Nausea Stop: 08/21/20 14:21 Oxycodone HCl (Oxycodone Hcl Ir 5 Mg Tab (Immediate Release)) 5 - 10 mg PO Q4H PRN PRN Reason: Moderate-Severe Pain & Pre PT Stop: 08/05/20 14:21 Pneumococcal Polyvalent Vaccine (Do Not Administer Pneumococcal Vaccine) 1 ea N/A PRN PRN PRN Reason: Notification Stop: 08/21/20 14:21 Polyethylene Glycol (Polyethylene (Miralax) 17 Gm Pack) 17 gm PO Q6 HALEY Stop: 08/22/20 05:59 Senna/Docusate Sodium (Docusate Sodium/Senna 50/8.6mg Tab) 2 tab PO HS HALEY Stop: 08/21/20 20:59 Sodium Biphosphate/Sodium Phosphate (Sod Phosphate/Sod Biphosphate Enema 132 Ml Btl) 132 ml WV ONE PRN PRN Reason: Constipation Stop: 08/21/20 14:21 Tramadol HCl (Tramadol Hcl 50 Mg Tablet) 50 - 100 mg PO Q4H PRN PRN Reason: Moderate-Severe Pain & Pre PT Stop: 08/21/20 14:21 Umeclidinium [place] (Umeclidinium [place] 62.5mcg/Blister 7 Puffs/Inhaler) 1 puffs INH QAM HALEY Stop: 08/22/20 08:59
[2020-07-22] MEDS: ceFAZolin 2000MG 2,000 MG/15 ML SYR IV SCH (18:06)
[2020-07-22] MEDS: oxyCODONE HCL IR 5 MG TAB (IMMEDIATE RELEASE) PO PRN (21:00)
[2020-07-22] MEDS: DOCUSATE SODIUM/SENNA 50/8.6MG TAB PO SCH (21:01)
[2020-07-22] MEDS: ATORVASTATIN 40 MG TAB PO SCH (21:01)
[2020-07-22] MEDS: traMADol HCL 50 MG TABLET PO PRN (23:54)
[2020-07-23] MEDS ORDERED: INSULIN ASPART 100 UNITS/ML 3 ML PEN SC SCH
[2020-07-23] MEDS: ceFAZolin 2000MG 2,000 MG/15 ML SYR IV SCH (02:23)
[2020-07-23] MEDS: POLYETHYLENE (MIRALAX) 17 GM PACK PO SCH ×3 (06:01→17:24)
[2020-07-23] MEDS: GABAPENTIN 600 MG TAB PO SCH ×3 (06:01→21:24)
[2020-07-23] MEDS: oxyCODONE HCL IR 5 MG TAB (IMMEDIATE RELEASE) PO PRN ×2 (06:06→21:23)
[2020-07-23 06:23] LABS: Basophils # (auto) 0.01 K/uL (0-0.2); Basophils % (auto) 0.1 %; Eosinophils # (auto) 0.04 K/uL (0-0.5); Eosinophils % (auto) 0.3 %; Hematocrit (blood only) 38.3 % (42-52); Hemoglobin 12.6 g/dL (14.0-18.0); Immature Granulocytes # (auto) 0.03 K/uL (0.00-0.02); Immature Granulocytes % (auto) 0.2 %; Lymphocytes # (auto) 1.26 K/uL (1.2-3.4); Lymphocytes % (auto) 10.4 %; Mean Corpuscular Hemoglobin 29.9 pg (25-34); Mean Corpuscular Hgb Conc 32.9 g/dL (32-36); Mean Corpuscular Volume 90.8 fL (80-100); Monocytes # (auto) 1.51 K/uL (0.11-0.59); Monocytes % (auto) 12.4 %; Neutrophils # (auto) 9.32 K/uL (1.4-6.5); Neutrophils % (auto) 76.6 %; Platelet Count 227 K/uL (130-400); RDW Coefficient of Variation 14.5 % (11.5-14.5); RDW Standard Deviation 48.6 fL (36.4-46.3); Red Blood Count 4.22 M/uL (4.7-6.1); White Blood Count 12.17 K/uL (4.8-10.8)
[2020-07-23 06:57] LABS: BUN Creatinine Ratio 18.4 (10-20); Calcium 8.5 mg/dl (8.5-10.1); Est GFR (Non-African American) 71.6 ml/min; Potassium 3.8 mmol/L (3.5-5.1)
--- NOTE | 2020-07-23 08:42 | Orthopedic Progress Note ---
Date of Service July 23, 2020 Assessment & Plan (1) Neurogenic claudication due to lumbar spinal stenosis: Admission and Anticipated Discharge Date Admission Date: July 22, 2020 We will initiate physical therapy today monitor his RENÉ output hopefully discharge home Saturday. He may need home health. Subjective Patient's back pain is controlled leg symptoms improved Physical Exam Physical Exam: Patient is in the chair at the bedside. Is good strength testing. Appears comfortable. Results & Data ([facility]) Vital Signs (Past 12 Hours) Vital Signs Temp Pulse Resp BP BP Pulse Ox 07/23/20 07:16 36.5 C 68 16 112/70 96 07/23/20 03:42 36.8 C 80 16 122/72 95 07/22/20 23:51 81 135/88 07/22/20 22:41 36.7 C 76 16 101/56 L 93
[2020-07-23] MEDS: LOSARTAN POTASSIUM 50 MG TAB PO SCH (08:51)
[2020-07-23] MEDS: DULoxetine HCL 30 MG CAP PO SCH (08:52)
[2020-07-23] MEDS: ASPIRIN 81 MG ECTAB PO SCH (08:52)
[2020-07-23] MEDS: BISOPROLOL FUMARATE 5 MG TAB PO SCH (08:53)
[2020-07-23] MEDS: FLUTICASONE/VILANTEROL 100/25MCG 14 PUFFS/INHALER INH SCH (08:54)
[2020-07-23] MEDS: UMECLIDINIUM BROMIDE 62.5MCG/BLISTER 7 PUFFS/INHALER INH SCH (08:55)
[2020-07-23] MEDS: INSULIN ASPART 100 UNITS/ML 3 ML PEN SC SCH ×4 (08:56→21:27)
[2020-07-23] MEDS ORDERED: NON-FORMULARY MEDICATION (Empagliflozin [Jardiance] 10 mg Tablet) PO SCH (09:00)
[2020-07-23] MEDS ORDERED: FUROSEMIDE 20 MG TAB PO SCH (09:00)
--- NOTE | 2020-07-23 09:35 | Hospitalist Progress Note ---
Date of Service July 23, 2020 Assessment & Plan (1) Status post lumbar surgery: Post op day# 1 S/P L3-L5 decompression & fusion by Dr Meyer -pain management per ortho -wound management per ortho -PT/OT as appropriate -DVT prophylaxis per ortho -incentive spirometry -monitor H&H for acute blood loss anemia; pre-op Hgb: 14 Acute blood loss anemia/dilutional anemia post-op -Mild and expected, current hemoglobin 12.6, from 14.2 preop -No need for blood transfusion monitor RENÉ output, H&H (2) CAD (coronary artery disease): S/P stents x 3 No CP, SOB -Continue aspirin, bisoprolol, losartan, atorvastatin (3) Hypertension: -Continue losartan, bisoprolol -Hold lasix and reassess tomorrow -current BP 112/70, continue to monitor (4) Diabetes mellitus, type 2: A1c: 6.6 on 06/27/20 -Hold home oral medications -Glycemic pharmacy on board, appreciate glycemic management (5) Chronic obstructive pulmonary disease: No signs acute exacerbation -Continue home inhalers DVT Prophylaxis -SCDs per ortho Disposition per primary service Follows with Dr Strickland for routine care Thank you for this consultation. We will follow the patient with you during their hospital stay. You can [facility] a [facility] via pager @ [phone]. Admission and Anticipated Discharge Date Admission Date: July 22, 2020 Subjective Patient seen in follow-up of lumbar spine decompression fusion, with Dr. Meyer yesterday Currently sitting up in a chair, in no acute distress. Denies any fevers or chills, chest pain or shortness of breath Reports he feels a little sore, he was able to walk in the hallway He still has Parsons catheter placed and RENÉ drain Currently eating breakfast Review of Systems Review of Systems: All systems reviewed & are unremarkable except as noted in HPI & below Constitutional: no fever and no chills Respiratory: no cough and no dyspnea Cardiovascular: no chest pain and no palpitations Gastrointestinal: no abdominal pain and no vomiting Physical Exam Physical Exam: General: obese male sitting up in chair, no distress Head: normocephalic, atraumatic Eyes: conjunctiva non-injected, anicteric ENT: normal inspection external ears, nose, mucous membranes moist Neck: supple, trachea midline Lungs: clear, no respiratory distress, no wheezing/rhonchi/rales CV: RRR, no murmur, no pretibial edema Abd: normal BS, soft, protuberant, non-tender Back: surgical dressing in place, RENÉ drain in place with serosanguineous drainage Ext: pedal pushes and pulls intact bilaterally, sensation to light touch intact, distal pulses intact Neuro: A&O x 3, no focal deficits noted, normal affect Skin: warm, dry Results & Data Results & Data ([facility]) Vital Signs (Past 12 Hours) Vital Signs Temp Pulse Resp BP BP Pulse Ox 07/23/20 07:16 36.5 C 68 16 112/70 96 07/23/20 03:42 36.8 C 80 16 122/72 95 07/22/20 23:51 81 135/88 07/22/20 22:41 36.7 C 76 16 101/56 L 93 Laboratory Results 07/23/20 07/23/20 07/23/20 Range/Units 07:57 06:04 06:04 WBC 12.17 H (4.8-10.8) K/uL RBC 4.22 L (4.7-6.1) M/uL Hgb 12.6 L (14.0-18.0) g/dL Hct 38.3 L (42-52) % MCV 90.8 (80-100) fL MCH 29.9 (25-34) pg MCHC 32.9 (32-36) g/dL RDW Std Deviation 48.6 H (36.4-46.3) fL RDW Coeff of Jessica 14.5 (11.5-14.5) % Plt Count 227 (130-400) K/uL MPV 10.0 (7.4-10.4) fL Immature Gran % (Auto) 0.2 % Neut % (Auto) 76.6 % Lymph % (Auto) 10.4 % Crisp % (Auto) 12.4 % Eos % (Auto) 0.3 % Baso % (Auto) 0.1 % Neut # (Auto) 9.32 H (1.4-6.5) K/uL Lymph # (Auto) 1.26 (1.2-3.4) K/uL Crisp # (Auto) 1.51 H (0.11-0.59) K/uL Eos # (Auto) 0.04 (0-0.5) K/uL Baso # (Auto) 0.01 (0-0.2) K/uL Immature Gran # (Auto) 0.03 H (0.00-0.02) K/uL Sodium 138 (136-145) mmol/L Potassium 3.8 (3.5-5.1) mmol/L Chloride 107 (98-107) mmol/L Carbon Dioxide 27 (21-32) mmol/L Anion Gap 5.0 (3-11) BUN 19 H (7-18) mg/dl Creatinine 1.05 (0.6-1.4) mg/dl Est Cr Clr Drug Dosing 73.0 ml/min Est GFR ( Amer) 83.0 ml/min Est GFR (Non-Af Amer) 71.6 ml/min BUN/Creatinine Ratio 18.4 (10-20) Glucose 139 H (70-99) mg/dl POC Glucose 137 H (70-99) mg/dl Calcium 8.5 (8.5-10.1) mg/dl 07/22/20 07/22/20 07/22/20 Range/Units 23:49 20:53 17:00 WBC (4.8-10.8) K/uL RBC (4.7-6.1) M/uL Hgb (14.0-18.0) g/dL Hct (42-52) % MCV (80-100) fL MCH (25-34) pg MCHC (32-36) g/dL RDW Std Deviation (36.4-46.3) fL RDW Coeff of Jessica (11.5-14.5) % Plt Count (130-400) K/uL MPV (7.4-10.4) fL Immature Gran % (Auto) % Neut % (Auto) % Lymph % (Auto) % Crisp % (Auto) % Eos % (Auto) % Baso % (Auto) % Neut # (Auto) (1.4-6.5) K/uL Lymph # (Auto) (1.2-3.4) K/uL Crisp # (Auto) (0.11-0.59) K/uL Eos # (Auto) (0-0.5) K/uL Baso # (Auto) (0-0.2) K/uL Immature Gran # (Auto) (0.00-0.02) K/uL Sodium (136-145) mmol/L Potassium (3.5-5.1) mmol/L Chloride (98-107) mmol/L Carbon Dioxide (21-32) mmol/L Anion Gap (3-11) BUN (7-18) mg/dl Creatinine (0.6-1.4) mg/dl Est Cr Clr Drug Dosing ml/min Est GFR ( Amer) ml/min Est GFR (Non-Af Amer) ml/min BUN/Creatinine Ratio (10-20) Glucose (70-99) mg/dl POC Glucose 121 H 179 H 126 H (70-99) mg/dl Calcium (8.5-10.1) mg/dl 07/22/20 Range/Units 13:35 WBC (4.8-10.8) K/uL RBC (4.7-6.1) M/uL Hgb (14.0-18.0) g/dL Hct (42-52) % MCV (80-100) fL MCH (25-34) pg MCHC (32-36) g/dL RDW Std Deviation (36.4-46.3) fL RDW Coeff of Jessica (11.5-14.5) % Plt Count (130-400) K/uL MPV (7.4-10.4) fL Immature Gran % (Auto) % Neut % (Auto) % Lymph % (Auto) % Crisp % (Auto) % Eos % (Auto) % Baso % (Auto) % Neut # (Auto) (1.4-6.5) K/uL Lymph # (Auto) (1.2-3.4) K/uL Crisp # (Auto) (0.11-0.59) K/uL Eos # (Auto) (0-0.5) K/uL Baso # (Auto) (0-0.2) K/uL Immature Gran # (Auto) (0.00-0.02) K/uL Sodium (136-145) mmol/L Potassium (3.5-5.1) mmol/L Chloride (98-107) mmol/L Carbon Dioxide (21-32) mmol/L Anion Gap (3-11) BUN (7-18) mg/dl Creatinine (0.6-1.4) mg/dl Est Cr Clr Drug Dosing ml/min Est GFR ( Amer) ml/min Est GFR (Non-Af Amer) ml/min BUN/Creatinine Ratio (10-20) Glucose (70-99) mg/dl POC Glucose 126 H (70-99) mg/dl Calcium (8.5-10.1) mg/dl Medications Administered Current Inpatient Medications Acetaminophen (Acetaminophen 500 Mg Tab) 1,000 mg PO Q8H PRN PRN Reason: MILD Pain Scale 1,2,3 & Pre PT Stop: 08/21/20 14:21 Al Hydrox/Mg Hydrox/Simethicone (Aluminum/Magnesium Susp 30 Ml Udc) 30 ml PO Q6H PRN PRN Reason: Dyspepsia Stop: 08/21/20 14:21 Albuterol (Albuterol Hfa 8 Gm Inhaler) 1 puffs INH QIDR PRN PRN Reason: SHORT OF BREATH Stop: 08/21/20 14:21 Albuterol (Albut/Ipratrop 3mg/0.5mg Neb 3 Ml Vial) 3 ml INH Q4H PRN PRN Reason: SHORT OF BREATH Stop: 08/21/20 14:21 Aspirin (Aspirin 81 Mg Ectab) 81 mg PO QAM HALEY Stop: 08/22/20 08:59 Last Admin: 07/23/20 08:52 Dose: 81 mg Documented by: Atorvastatin Calcium (Atorvastatin 40 Mg Tab) 80 mg PO HS HALEY Stop: 08/21/20 20:59 Last Admin: 07/22/20 21:01 Dose: 80 mg Documented by: Bisacodyl (Bisacodyl 10 Mg Supp) 10 mg NV DAILY PRN PRN Reason: Constipation Stop: 08/21/20 14:21 Bisoprolol Fumarate (Bisoprolol Fumarate 5 Mg Tab) 5 mg PO Q2D HALEY Stop: 08/22/20 08:59 Last Admin: 07/23/20 08:53 Dose: 5 mg Documented by: Dextrose (Dextrose 50% 50 Ml Syringe) 25 - 50 ml IV UD PRN; Protocol PRN Reason: Hypoglycemia Protocol Stop: 08/21/20 14:44 Diphenhydramine HCl (Diphenhydramine Capsule 25 Mg Cap) 25 mg PO Q6H PRN PRN Reason: Allergic Rhinitis/Insomnia Stop: 08/21/20 14:21 Duloxetine HCl (Duloxetine Hcl 30 Mg Cap) 30 mg PO QAM HALEY Stop: 08/22/20 08:59 Last Admin: 07/23/20 08:52 Dose: 30 mg Documented by: Famotidine (Famotidine 20 Mg Tab) 20 mg PO Q12H PRN PRN Reason: Dyspepsia Stop: 08/21/20 14:21 Fluticasone/Vilanterol (Fluticasone/Vilanterol 100/25mcg 14 Puffs/Inhaler) 1 puffs INH DAILY [facility]; Protocol Stop: 08/22/20 08:59 Last Admin: 07/23/20 08:54 Dose: 1 puffs Documented by: Furosemide (Furosemide 20 Mg Tab) 20 mg PO QAM [facility] Stop: 08/22/20 08:59 Gabapentin (Gabapentin 600 Mg Tab) 600 mg PO Q8 HALEY Stop: 08/21/20 14:59 Last Admin: 07/23/20 06:01 Dose: 600 mg Documented by: Glucagon (Glucagon For Inj 1 Mg Vial) 1 mg IM UD PRN; Protocol PRN Reason: Hypoglycemia Protocol Stop: 08/21/20 14:44 Glucose (Glucose 40% Gel 15 Gm Tube) 15 - 30 gm PO UD PRN; Protocol PRN Reason: Hypoglycemia Protocol Stop: 08/21/20 14:44 Glucose (Glucose 10 Tabs/Tube) 4 - 8 tabs PO UD PRN; Protocol PRN Reason: Hypoglycemia Protocol Stop: 08/21/20 14:44 Hydromorphone HCl (Hydromorphone Inj 0.5 Mg/0.5 Ml Syr) 0.5 mg IV Q3H PRN PRN Reason: MOD pain (scale 4-6) & Pre PT Stop: 08/05/20 14:21 Hydromorphone HCl (Hydromorphone Inj 1 Mg/Ml Syringe) 1 mg IV Q3H PRN PRN Reason: severe pain (scale 7-10) Stop: 08/05/20 14:21 Hydroxyzine HCl (Hydroxyzine Hcl 25 Mg Tab) 25 mg PO Q8H PRN PRN Reason: Anxiety Stop: 08/21/20 14:21 Acetaminophen (Ofirmev) 1,000 mg in 100 mls @ 400 mls/hr IV Q8H PRN PRN Reason: MILD Pain Rating 1,2,3 Stop: 07/23/20 14:21 Promethazine HCl 12.5 mg/ (Sodium Chloride) 50.5 mls @ 204 mls/hr IV Q6H PRN PRN Reason: Nausea &/or Vomiting Stop: 08/21/20 14:21 Lorazepam (Ativan) 0.5 mg in 1 mls @ 0.5 mls/min IV Q8H PRN PRN Reason: Sedation/Anxiety Stop: 08/21/20 14:21 Influenza Virus Vaccine Quadrival (Do Not Administer Flu Vaccine) 1 ea N/A PRN PRN PRN Reason: Notification Stop: 08/21/20 14:21 Insulin Aspart (Insulin Aspart 100 Units/Ml 3 Ml Pen) 0 units SC ACHS [facility] Stop: 08/21/20 14:59 Last Admin: 07/23/20 08:56 Dose: 5 units Documented by: Lorazepam (Lorazepam 0.5 Mg Tab) 0.5 mg PO Q8H PRN PRN Reason: Sedation/Anxiety Stop: 08/21/20 14:21 Losartan Potassium (Losartan Potassium 50 Mg Tab) 50 mg PO QAM [facility] Stop: 08/22/20 08:59 Last Admin: 07/23/20 08:51 Dose: 50 mg Documented by: Magnesium Hydroxide (Magnesium Hydroxide Susp 30 Ml Udc) 30 ml PO DAILY PRN PRN Reason: Constipation Stop: 08/21/20 14:21 Metoclopramide HCl (Metoclopramide Hcl Inj 5 Mg/Ml 2 Ml Vial) 10 mg IV Q6H PRN PRN Reason: Nausea &/or Vomiting Stop: 08/21/20 14:21 Miscellaneous (Carbohydrates For Hypoglycemia ) 15 - 30 gm PO UD PRN PRN Reason: Hypoglycemia Treatment Stop: 08/21/20 14:44 Miscellaneous Information (Pharmacy Glycemic Mgmt Consult) 1 ea N/A UD PRN PRN Reason: Consult Stop: 08/21/20 14:36 Naloxone HCl (Naloxone Hcl 0.4 Mg/1 Ml Vial/Carp) 0.1 mg IV Q5M PRN; Protocol PRN Reason: Oversedation/Resp Depression Stop: 08/21/20 14:21 Ondansetron HCl (Ondansetron Inj 2 Mg/Ml 2 Ml Vial) 4 mg IV Q6H PRN PRN Reason: Nausea &/or Vomiting Stop: 08/21/20 14:21 Ondansetron HCl (Ondansetron 4 Mg Od Tab) 4 mg PO Q6H PRN PRN Reason: Nausea Stop: 08/21/20 14:21 Oxycodone HCl (Oxycodone Hcl Ir 5 Mg Tab (Immediate Release)) 5 - 10 mg PO Q4H PRN PRN Reason: Moderate-Severe Pain & Pre PT Stop: 08/05/20 14:21 Last Admin: 07/23/20 06:06 Dose: 5 mg Documented by: Pneumococcal Polyvalent Vaccine (Do Not Administer Pneumococcal Vaccine) 1 ea N/A PRN PRN PRN Reason: Notification Stop: 08/21/20 14:21 Polyethylene Glycol (Polyethylene (Miralax) 17 Gm Pack) 17 gm PO Q6 [facility] Stop: 08/22/20 05:59 Last Admin: 07/23/20 06:01 Dose: 17 gm Documented by: Senna/Docusate Sodium (Docusate Sodium/Senna 50/8.6mg Tab) 2 tab PO HS [facility] Stop: 08/21/20 20:59 Last Admin: 07/22/20 21:01 Dose: 2 tab Documented by: Sodium Biphosphate/Sodium Phosphate (Sod Phosphate/Sod Biphosphate Enema 132 Ml Btl) 132 ml NV ONE PRN PRN Reason: Constipation Stop: 08/21/20 14:21 Tramadol HCl (Tramadol Hcl 50 Mg Tablet) 50 - 100 mg PO Q4H PRN PRN Reason: Moderate-Severe Pain & Pre PT Stop: 08/21/20 14:21 Last Admin: 07/22/20 23:54 Dose: 50 mg Documented by: Umeclidinium Kistler (Umeclidinium Kistler 62.5mcg/Blister 7 Puffs/Inhaler) 1 puffs INH QAM [facility] Stop: 08/22/20 08:59 Last Admin: 07/23/20 08:55 Dose: 1 puffs Documented by:
--- NOTE | 2020-07-23 09:44 | Anesthesiology Progress Note ---
Date of Service July 23, 2020 Anesthesia Post Procedure Vital Signs Vital Signs: Temp Pulse Pulse Resp BP BP Pulse Ox 07/23/20 07:16 36.5 C 68 16 112/70 96 07/23/20 03:42 36.8 C 80 16 122/72 95 07/22/20 23:51 81 135/88 07/22/20 22:41 36.7 C 76 16 101/56 L 93 07/22/20 19:26 36.9 C 85 18 107/62 95 07/22/20 17:16 36.7 C 77 16 120/68 93 07/22/20 16:11 36.7 C 78 16 114/67 92 07/22/20 15:09 36.8 C 80 16 152/77 H 92 07/22/20 14:45 72 18 118/62 97 07/22/20 14:15 72 18 114/62 97 07/22/20 13:55 70 18 115/70 99 07/22/20 13:50 70 21 102/71 100 07/22/20 13:40 68 18 105/70 99 07/22/20 13:30 36.3 C L 66 17 113/66 97 07/22/20 13:20 36.3 C L 68 14 98/62 L 97 07/22/20 13:10 70 18 99/62 L 92 07/22/20 13:00 73 18 116/87 96 07/22/20 12:50 36.2 C L 76 16 140/80 95 07/22/20 12:43 36.2 C L 79 16 165/69 H 97 Pain Intensity Lower Back: Pain Intensity: 3 Notes Mental Status: alert / awake / arousable and participated in evaluation Nausea / Vomiting: adequately controlled Pain: adequately controlled Airway Patency, RR, SpO2: stable & adequate BP & HR: stable & adequate Hydration State: stable & adequate Anesthetic Complications: no major complications apparent and Pt Satisfied with anesthetic care
--- NOTE | 2020-07-23 15:35 | Pharmacy Report ---
Pharmacy Glycemic Short Note 2 - Date of Service July 23, 2020 - Glycemic Short BSG Results (Last 24 hours): 07/22/20 07/22/20 07/22/20 17:00 20:53 23:49 Glucose POC Glucose 126 H 179 H 121 H 07/23/20 07/23/20 07/23/20 06:04 07:57 11:51 Glucose 139 H POC Glucose 137 H 145 H OUTPATIENT ANTIDIABETIC REGIMEN: * Metformin 1000 mg PO BIDM * Jardiance 10 mg PO daily * HbA1c: 6.6% (07/04/20) ASSESSMENT: 07/23: * Patient received total of 23 units of insulin yesterday; 15 units basal + 8 units bolus. * Fasting BSG was 137 mg/dl today. Basal insulin is no longer needed since steroid dose should be wearing off today. * Oral Metformin home dose was resumed starting this evening since renal function is normal. Novolog CR was canceled. 07/22: * RR is a 70 year old male POD #0 s/p L4-5 decompression/fusion * Received 4 mg IV dexamethasone in OR * Fasting BSG of 117 mg/dL * Postoperative BSG of 126 mg/dL * A1c well controlled with multiple oral agents * Will order conservative Lantus dose today to help cover steroids PLAN FOR INPATIENT GLYCEMIC CONTROL: * Metformin 1000 mg PO BID with meals starting with dinner today * Basal insulin * none * Bolus insulin: removed CR * NovoLog per scale ACHS or Q6hrs while NPO * Goal Range: Low 110 mg/dL - High 140 mg/dL * Correction Factor: 20 mg/dL/unit * Nutritional / Prandial insulin per carb ratio of 1 unit per __ grams CHO consumed PLAN FOR DISCHARGE: * A1c of 6.6% demonstrates excellent outpatient glycemic control * Continue current outpatient regimen at discharge
[2020-07-23] MEDS: metFORMIN HCL 500 MG TAB PO SCH (17:24)
[2020-07-23] MEDS: LORazepam 0.5 MG TAB PO PRN (21:23)
[2020-07-23] MEDS: DOCUSATE SODIUM/SENNA 50/8.6MG TAB PO SCH (21:24)
[2020-07-23] MEDS: ATORVASTATIN 40 MG TAB PO SCH (21:24)
[2020-07-24] MEDS: POLYETHYLENE (MIRALAX) 17 GM PACK PO SCH ×5 (01:00→21:52)
[2020-07-24] MEDS: GABAPENTIN 600 MG TAB PO SCH ×3 (05:10→21:53)
[2020-07-24 05:49] LABS: Hematocrit (blood only) 36.9 % (42-52); Hemoglobin 12.1 g/dL (14.0-18.0); Mean Corpuscular Hemoglobin 29.7 pg (25-34); Mean Corpuscular Hgb Conc 32.8 g/dL (32-36); Mean Corpuscular Volume 90.7 fL (80-100); Platelet Count 215 K/uL (130-400); RDW Coefficient of Variation 14.5 % (11.5-14.5); RDW Standard Deviation 48.6 fL (36.4-46.3); Red Blood Count 4.07 M/uL (4.7-6.1); White Blood Count 11.98 K/uL (4.8-10.8)
[2020-07-24 06:13] LABS: BUN Creatinine Ratio 23.6 (10-20); Calcium 8.1 mg/dl (8.5-10.1); Creatinine Clr Calc Pharmacy 105.1 ml/min; Est GFR (African American) 108.9 ml/min; Potassium 3.9 mmol/L (3.5-5.1)
[2020-07-24] MEDS: oxyCODONE HCL IR 5 MG TAB (IMMEDIATE RELEASE) PO PRN ×4 (07:46→22:50)
[2020-07-24] MEDS: ASPIRIN 81 MG ECTAB PO SCH (08:30)
[2020-07-24] MEDS: metFORMIN HCL 500 MG TAB PO SCH ×2 (08:30→17:38)
[2020-07-24] MEDS: DULoxetine HCL 30 MG CAP PO SCH (08:30)
[2020-07-24] MEDS: LOSARTAN POTASSIUM 50 MG TAB PO SCH (08:31)
[2020-07-24] MEDS: FLUTICASONE/VILANTEROL 100/25MCG 14 PUFFS/INHALER INH SCH (08:32)
[2020-07-24] MEDS: UMECLIDINIUM BROMIDE 62.5MCG/BLISTER 7 PUFFS/INHALER INH SCH (08:32)
[2020-07-24] MEDS: INSULIN ASPART 100 UNITS/ML 3 ML PEN SC SCH ×4 (08:38→21:46)
--- NOTE | 2020-07-24 10:41 | Orthopedic Progress Note ---
Date of Service July 24, 2020 Assessment & Plan (1) Neurogenic claudication due to lumbar spinal stenosis: Admission and Anticipated Discharge Date Admission Date: July 22, 2020 At this time we will continue physical therapy monitor his RENÉ output anticipate discharge home tomorrow. Subjective Back pain controlled leg symptoms improved Physical Exam Physical Exam: Patient is sitting in a chair at the bedside. Is good strength testing. Appears comfortable. Results & Data ([facility]) Vital Signs (Past 12 Hours) Vital Signs Temp Pulse Resp BP Pulse Ox 07/24/20 07:43 36.6 C 66 16 120/79 93
--- NOTE | 2020-07-24 11:02 | Hospitalist Progress Note ---
Date of Service July 24, 2020 Assessment & Plan (1) Status post lumbar surgery: Post op day# 2 S/P L3-L5 decompression & fusion by Dr Meyer -pain management per ortho -wound management per ortho -PT/OT as appropriate -DVT prophylaxis per ortho -incentive spirometry -monitor H&H for acute blood loss anemia; pre-op Hgb: 14 Acute blood loss anemia/dilutional anemia post-op -Mild and expected, current hemoglobin 12.1, from 14.2 preop, however many minimal change from yesterday, stable -No need for blood transfusion monitor RENÉ output, H&H (2) CAD (coronary artery disease): S/P stents x 3 No CP, SOB -Continue aspirin, bisoprolol, losartan, atorvastatin (3) Hypertension: -Continue losartan, bisoprolol -Hold lasix and reassess tomorrow -current BP 120/79, continue to monitor (4) Diabetes mellitus, type 2: A1c: 6.6 on 06/27/20 -Hold home oral medications -Glycemic pharmacy on board, appreciate glycemic management (5) Chronic obstructive pulmonary disease: No signs acute exacerbation -Continue home inhalers DVT Prophylaxis -SCDs per ortho Disposition per primary service Follows with Dr Strickland for routine care Thank you for this consultation. We will follow the patient with you during their hospital stay. You can reach a member of the [facility] Hospitalist Team 24/09 via pager @ [phone]. Admission and Anticipated Discharge Date Admission Date: July 22, 2020 Subjective Patient seen in follow-up of lumbar spine decompression fusion, with Dr. Meyer Currently sitting up in a chair, in no acute distress. Denies any fevers or chills, chest pain or shortness of breath Reports he feels a little sore, able to walk in the hallway He still has a RENÉ drain He urinates and passing flatus, however no BM yet, currently drinking MiraLAX He is using incentive spirometry Review of Systems Review of Systems: All systems reviewed & are unremarkable except as noted in HPI & below Constitutional: no fever and no chills Respiratory: no cough and no dyspnea Cardiovascular: no chest pain and no palpitations Gastrointestinal: no abdominal pain and no vomiting Physical Exam Physical Exam: General: obese male sitting up in chair, no distress Head: normocephalic, atraumatic Eyes: conjunctiva non-injected, anicteric ENT: normal inspection external ears, nose, mucous membranes moist Neck: supple, trachea midline Lungs: clear, no respiratory distress, no wheezing/rhonchi/rales CV: RRR, no murmur, no pretibial edema Abd: normal BS, soft, protuberant, non-tender Back: surgical dressing in place, RENÉ drain in place with serosanguineous drainage Ext: pedal pushes and pulls intact bilaterally, sensation to light touch intact, distal pulses intact Neuro: A&O x 3, no focal deficits noted, normal affect Skin: warm, dry Results & Data Results & Data ([facility]) Vital Signs (Past 12 Hours) Vital Signs Temp Pulse Resp BP Pulse Ox 07/24/20 07:43 36.6 C 66 16 120/79 93 Laboratory Results 07/24/20 07/24/20 07/24/20 Range/Units 08:03 05:17 05:17 WBC 11.98 H (4.8-10.8) K/uL RBC 4.07 L (4.7-6.1) M/uL Hgb 12.1 L (14.0-18.0) g/dL Hct 36.9 L (42-52) % MCV 90.7 (80-100) fL MCH 29.7 (25-34) pg MCHC 32.8 (32-36) g/dL RDW Std Deviation 48.6 H (36.4-46.3) fL RDW Coeff of Jessica 14.5 (11.5-14.5) % Plt Count 215 (130-400) K/uL MPV 10.0 (7.4-10.4) fL Sodium 139 (136-145) mmol/L Potassium 3.9 (3.5-5.1) mmol/L Chloride 107 (98-107) mmol/L Carbon Dioxide 28 (21-32) mmol/L Anion Gap 4.0 (3-11) BUN 17 (7-18) mg/dl Creatinine 0.73 D (0.6-1.4) mg/dl Est Cr Clr Drug Dosing 105.1 ml/min Est GFR ( Amer) 108.9 ml/min Est GFR (Non-Af Amer) 94.0 ml/min BUN/Creatinine Ratio 23.6 H (10-20) Glucose 111 H (70-99) mg/dl POC Glucose 112 H (70-99) mg/dl Calcium 8.1 L (8.5-10.1) mg/dl 07/23/20 07/23/20 07/23/20 Range/Units 20:38 17:03 11:51 WBC (4.8-10.8) K/uL RBC (4.7-6.1) M/uL Hgb (14.0-18.0) g/dL Hct (42-52) % MCV (80-100) fL MCH (25-34) pg MCHC (32-36) g/dL RDW Std Deviation (36.4-46.3) fL RDW Coeff of Jessica (11.5-14.5) % Plt Count (130-400) K/uL MPV (7.4-10.4) fL Sodium (136-145) mmol/L Potassium (3.5-5.1) mmol/L Chloride (98-107) mmol/L Carbon Dioxide (21-32) mmol/L Anion Gap (3-11) BUN (7-18) mg/dl Creatinine (0.6-1.4) mg/dl Est Cr Clr Drug Dosing ml/min Est GFR ( Amer) ml/min Est GFR (Non-Af Amer) ml/min BUN/Creatinine Ratio (10-20) Glucose (70-99) mg/dl POC Glucose 125 H 139 H 145 H (70-99) mg/dl Calcium (8.5-10.1) mg/dl Medications Administered Current Inpatient Medications Acetaminophen (Acetaminophen 500 Mg Tab) 1,000 mg PO Q8H PRN PRN Reason: MILD Pain Scale 1,2,3 & Pre PT Stop: 08/21/20 14:21 Al Hydrox/Mg Hydrox/Simethicone (Aluminum/Magnesium Susp 30 Ml Udc) 30 ml PO Q6H PRN PRN Reason: Dyspepsia Stop: 08/21/20 14:21 Albuterol (Albuterol Hfa 8 Gm Inhaler) 1 puffs INH QIDR PRN PRN Reason: SHORT OF BREATH Stop: 08/21/20 14:21 Albuterol (Albut/Ipratrop 3mg/0.5mg Neb 3 Ml Vial) 3 ml INH Q4H PRN PRN Reason: SHORT OF BREATH Stop: 08/21/20 14:21 Aspirin (Aspirin 81 Mg Ectab) 81 mg PO QAM HALEY Stop: 08/22/20 08:59 Last Admin: 07/24/20 08:30 Dose: 81 mg Documented by: Atorvastatin Calcium (Atorvastatin 40 Mg Tab) 80 mg PO HS HALEY Stop: 08/21/20 20:59 Last Admin: 07/23/20 21:24 Dose: 80 mg Documented by: Bisacodyl (Bisacodyl 10 Mg Supp) 10 mg HI DAILY PRN PRN Reason: Constipation Stop: 08/21/20 14:21 Bisoprolol Fumarate (Bisoprolol Fumarate 5 Mg Tab) 5 mg PO Q2D HALEY Stop: 08/22/20 08:59 Last Admin: 07/23/20 08:53 Dose: 5 mg Documented by: Dextrose (Dextrose 50% 50 Ml Syringe) 25 - 50 ml IV UD PRN; Protocol PRN Reason: Hypoglycemia Protocol Stop: 08/21/20 14:44 Diphenhydramine HCl (Diphenhydramine Capsule 25 Mg Cap) 25 mg PO Q6H PRN PRN Reason: Allergic Rhinitis/Insomnia Stop: 08/21/20 14:21 Duloxetine HCl (Duloxetine Hcl 30 Mg Cap) 30 mg PO QAM HALEY Stop: 08/22/20 08:59 Last Admin: 07/24/20 08:30 Dose: 30 mg Documented by: Famotidine (Famotidine 20 Mg Tab) 20 mg PO Q12H PRN PRN Reason: Dyspepsia Stop: 08/21/20 14:21 Fluticasone/Vilanterol (Fluticasone/Vilanterol 100/25mcg 14 Puffs/Inhaler) 1 puffs INH DAILY HALEY; Protocol Stop: 08/22/20 08:59 Last Admin: 07/24/20 08:32 Dose: 1 puffs Documented by: Furosemide (Furosemide 20 Mg Tab) 20 mg PO QAM HALEY Stop: 08/22/20 08:59 Gabapentin (Gabapentin 600 Mg Tab) 600 mg PO Q8 HALEY Stop: 08/21/20 14:59 Last Admin: 07/24/20 05:10 Dose: 600 mg Documented by: Glucagon (Glucagon For Inj 1 Mg Vial) 1 mg IM UD PRN; Protocol PRN Reason: Hypoglycemia Protocol Stop: 08/21/20 14:44 Glucose (Glucose 40% Gel 15 Gm Tube) 15 - 30 gm PO UD PRN; Protocol PRN Reason: Hypoglycemia Protocol Stop: 08/21/20 14:44 Glucose (Glucose 10 Tabs/Tube) 4 - 8 tabs PO UD PRN; Protocol PRN Reason: Hypoglycemia Protocol Stop: 08/21/20 14:44 Hydromorphone HCl (Hydromorphone Inj 0.5 Mg/0.5 Ml Syr) 0.5 mg IV Q3H PRN PRN Reason: MOD pain (scale 4-6) & Pre PT Stop: 08/05/20 14:21 Hydromorphone HCl (Hydromorphone Inj 1 Mg/Ml Syringe) 1 mg IV Q3H PRN PRN Reason: severe pain (scale 7-10) Stop: 08/05/20 14:21 Hydroxyzine HCl (Hydroxyzine Hcl 25 Mg Tab) 25 mg PO Q8H PRN PRN Reason: Anxiety Stop: 08/21/20 14:21 Promethazine HCl 12.5 mg/ (Sodium Chloride) 50.5 mls @ 204 mls/hr IV Q6H PRN PRN Reason: Nausea &/or Vomiting Stop: 08/21/20 14:21 Lorazepam (Ativan) 0.5 mg in 1 mls @ 0.5 mls/min IV Q8H PRN PRN Reason: Sedation/Anxiety Stop: 08/21/20 14:21 Influenza Virus Vaccine Quadrival (Do Not Administer Flu Vaccine) 1 ea N/A PRN PRN PRN Reason: Notification Stop: 08/21/20 14:21 Insulin Aspart (Insulin Aspart 100 Units/Ml 3 Ml Pen) 0 units SC ACHS [facility] Stop: 08/21/20 14:59 Last Admin: 07/24/20 08:38 Dose: Not Given Documented by: Lorazepam (Lorazepam 0.5 Mg Tab) 0.5 mg PO Q8H PRN PRN Reason: Sedation/Anxiety Stop: 08/21/20 14:21 Last Admin: 07/23/20 21:23 Dose: 0.5 mg Documented by: Losartan Potassium (Losartan Potassium 50 Mg Tab) 50 mg PO QAM [facility] Stop: 08/22/20 08:59 Last Admin: 07/24/20 08:31 Dose: 50 mg Documented by: Magnesium Hydroxide (Magnesium Hydroxide Susp 30 Ml Udc) 30 ml PO DAILY PRN PRN Reason: Constipation Stop: 08/21/20 14:21 Metformin HCl (Metformin Hcl 500 Mg Tab) 1,000 mg PO BIDM HALEY Stop: 08/22/20 16:59 Last Admin: 07/24/20 08:30 Dose: 1,000 mg Documented by: Metoclopramide HCl (Metoclopramide Hcl Inj 5 Mg/Ml 2 Ml Vial) 10 mg IV Q6H PRN PRN Reason: Nausea &/or Vomiting Stop: 08/21/20 14:21 Miscellaneous (Carbohydrates For Hypoglycemia ) 15 - 30 gm PO UD PRN PRN Reason: Hypoglycemia Treatment Stop: 08/21/20 14:44 Miscellaneous Information (Pharmacy Glycemic Mgmt Consult) 1 ea N/A UD PRN PRN Reason: Consult Stop: 08/21/20 14:36 Naloxone HCl (Naloxone Hcl 0.4 Mg/1 Ml Vial/Carp) 0.1 mg IV Q5M PRN; Protocol PRN Reason: Oversedation/Resp Depression Stop: 08/21/20 14:21 Ondansetron HCl (Ondansetron Inj 2 Mg/Ml 2 Ml Vial) 4 mg IV Q6H PRN PRN Reason: Nausea &/or Vomiting Stop: 08/21/20 14:21 Ondansetron HCl (Ondansetron 4 Mg Od Tab) 4 mg PO Q6H PRN PRN Reason: Nausea Stop: 08/21/20 14:21 Oxycodone HCl (Oxycodone Hcl Ir 5 Mg Tab (Immediate Release)) 5 - 10 mg PO Q4H PRN PRN Reason: Moderate-Severe Pain & Pre PT Stop: 08/05/20 14:21 Last Admin: 07/24/20 07:46 Dose: 10 mg Documented by: Pneumococcal Polyvalent Vaccine (Do Not Administer Pneumococcal Vaccine) 1 ea N/A PRN PRN PRN Reason: Notification Stop: 08/21/20 14:21 Polyethylene Glycol (Polyethylene (Miralax) 17 Gm Pack) 17 gm PO Q6 HALEY Stop: 08/22/20 05:59 Last Admin: 07/24/20 05:09 Dose: 17 gm Documented by: Senna/Docusate Sodium (Docusate Sodium/Senna 50/8.6mg Tab) 2 tab PO HS HALEY Stop: 06/20/21 20:59 Last Admin: 07/23/20 21:24 Dose: 2 tab Documented by: Sodium Biphosphate/Sodium Phosphate (Sod Phosphate/Sod Biphosphate Enema 132 Ml Btl) 132 ml HI ONE PRN PRN Reason: Constipation Stop: 08/21/20 14:21 Tramadol HCl (Tramadol Hcl 50 Mg Tablet) 50 - 100 mg PO Q4H PRN PRN Reason: Moderate-Severe Pain & Pre PT Stop: 08/21/20 14:21 Last Admin: 07/22/20 23:54 Dose: 50 mg Documented by: Umeclidinium Albion (Umeclidinium [place] 62.5mcg/Blister 7 Puffs/Inhaler) 1 puffs INH QAM [facility] Stop: 08/22/20 08:59 Last Admin: 07/24/20 08:32 Dose: 1 puffs Documented by:
[2020-07-24] MEDS: LORazepam 0.5 MG TAB PO PRN ×2 (14:48→22:50)
[2020-07-24] MEDS: HYDROmorphone INJ 1 MG/ML SYRINGE IV PRN (19:55)
[2020-07-24] MEDS: ATORVASTATIN 40 MG TAB PO SCH (21:52)
[2020-07-24] MEDS: DOCUSATE SODIUM/SENNA 50/8.6MG TAB PO SCH (21:53)
[2020-07-25] MEDS: HYDROmorphone INJ 1 MG/ML SYRINGE IV PRN ×2 (00:12→00:20)
[2020-07-25] MEDS: traMADol HCL 50 MG TABLET PO PRN (01:05)
[2020-07-25] MEDS ORDERED: HYDROmorphone INJ 1 MG/ML SYRINGE IV STA (01:20)
[2020-07-25] MEDS ORDERED: tiZANidine HCL 4 MG TABLET PO PRN (01:22)
[2020-07-25] MEDS ORDERED: HYDROmorphone INJ 2 MG/ML SYR/VIAL IV PRN (01:24)
[2020-07-25 06:18] LABS: Hematocrit (blood only) 40.5 % (42-52); Hemoglobin 13.2 g/dL (14.0-18.0)
[2020-07-25] MEDS: GABAPENTIN 600 MG TAB PO SCH ×3 (06:22→20:59)
[2020-07-25] MEDS: POLYETHYLENE (MIRALAX) 17 GM PACK PO SCH ×3 (06:22→17:40)
[2020-07-25 06:55] LABS: BUN Creatinine Ratio 23.8 (10-20); Creatinine Clr Calc Pharmacy 91.3 ml/min; Est GFR (African American) 102.8 ml/min; Est GFR (Non-African American) 88.7 ml/min; Potassium 4.1 mmol/L (3.5-5.1)
[2020-07-25] MEDS: oxyCODONE HCL IR 5 MG TAB (IMMEDIATE RELEASE) PO PRN ×2 (08:09→17:44)
[2020-07-25] MEDS: LOSARTAN POTASSIUM 50 MG TAB PO SCH (08:50)
[2020-07-25] MEDS: INSULIN ASPART 100 UNITS/ML 3 ML PEN SC SCH ×4 (08:50→20:56)
[2020-07-25] MEDS: DULoxetine HCL 30 MG CAP PO SCH (08:51)
[2020-07-25] MEDS: UMECLIDINIUM BROMIDE 62.5MCG/BLISTER 7 PUFFS/INHALER INH SCH (08:51)
[2020-07-25] MEDS: ASPIRIN 81 MG ECTAB PO SCH (08:51)
[2020-07-25] MEDS: BISOPROLOL FUMARATE 5 MG TAB PO SCH (08:51)
[2020-07-25] MEDS: FLUTICASONE/VILANTEROL 100/25MCG 14 PUFFS/INHALER INH SCH (08:51)
[2020-07-25] MEDS: metFORMIN HCL 500 MG TAB PO SCH ×2 (08:51→17:40)
[2020-07-25] MEDS: LORazepam 0.5 MG TAB PO PRN (08:58)
[2020-07-25] MEDS ORDERED: CYCLOBENZAPRINE HCL 10 MG TAB PO PRN (09:48)
[2020-07-25] MEDS ORDERED: dexAMETHasone 8 MG in SYRINGE 0 ML IV STA (09:48)
--- NOTE | 2020-07-25 09:48 | Orthopedic Progress Note ---
Date of Service July 25, 2020 Assessment & Plan (1) Neurogenic claudication due to lumbar spinal stenosis: Admission and Anticipated Discharge Date Admission Date: July 22, 2020 At this time we will continue physical therapy try to manage his spasms today hopefully discharge home tomorrow. Subjective Patient struggling with back spasms today. Quite a bit of pain. Physical Exam Physical Exam: Patient is in the chair at the bedside. Is good strength testing. Results & Data ([facility]) Vital Signs (Past 12 Hours) Vital Signs Temp Pulse Resp BP BP Pulse Ox 07/25/20 07:33 36.9 C 95 H 18 124/81 92 07/24/20 22:49 37.4 C 83 20 138/84 94
--- NOTE | 2020-07-25 14:06 | Hospitalist Progress Note ---
Date of Service July 25, 2020 Assessment & Plan (1) Status post lumbar surgery: Post op day# 3 S/P L3-L5 decompression & fusion by Dr Meyer Pain management/DVT prophylaxis as per primary team. Continue to work with PT/OT. Hemoglobin remains stable. Likely to be discharged tomorrow once pain is better controlled. Acute blood loss anemia/dilutional anemia post-op stable (2) CAD (coronary artery disease): S/P stents x 3 No CP, SOB -Continue aspirin, bisoprolol, losartan, atorvastatin (3) Hypertension: -Continue losartan, bisoprolol continue holding lasix for now (4) Diabetes mellitus, type 2: A1c: 6.6 on 06/27/20 -Hold home oral medications -Glycemic pharmacy on board, appreciate glycemic management (5) Chronic obstructive pulmonary disease: No signs acute exacerbation -Continue home inhalers DVT Prophylaxis -SCDs per ortho Disposition per primary service Follows with Dr Strickland for routine care Thank you for this consultation. We will follow the patient with you during their hospital stay. You can reach a [facility] via pager @ [phone]. Admission and Anticipated Discharge Date Admission Date: July 22, 2020 Subjective Patient was working with physical therapy upon my arrival. Continues to have significant discomfort due to pain. Ports overnight he was also in significant pain. Have not had a bowel movement yet. Rest of the review of system is negative. Review of Systems Review of Systems: All systems reviewed & are unremarkable except as noted in HPI & below Physical Exam Physical Exam: General: A&Ox3 HENT: NCAT, MMM, EOMI Eyes: PERRLA Neck: Supple, normal range of motion CVS: normal rate and rhythm Resp: b/l good breath sounds Abdomen: Soft, distended, non-tender Extremities: No c/c/e Neuro: face symmetric, strength grossly equal, no focal deficit Skin: warm and dry, no rashes/lesions/errythema MSK: normal ROM, no joint swelling/erythema Back: dressing is intact Results & Data Results & Data ([facility]) Vital Signs (Past 12 Hours) Vital Signs Temp Pulse Resp BP Pulse Ox 07/25/20 12:56 98 07/25/20 07:33 36.9 C 95 H 18 124/81 92
[2020-07-25] MEDS: ATORVASTATIN 40 MG TAB PO SCH (20:55)
[2020-07-25] MEDS: DOCUSATE SODIUM/SENNA 50/8.6MG TAB PO SCH (20:55)
[2020-07-26] MEDS: POLYETHYLENE (MIRALAX) 17 GM PACK PO SCH ×3 (01:03→12:04)
[2020-07-26] MEDS: oxyCODONE HCL IR 5 MG TAB (IMMEDIATE RELEASE) PO PRN ×3 (02:53→17:04)
[2020-07-26] MEDS: GABAPENTIN 600 MG TAB PO SCH ×2 (06:17→13:12)
[2020-07-26] MEDS: ASPIRIN 81 MG ECTAB PO SCH (08:58)
[2020-07-26] MEDS: metFORMIN HCL 500 MG TAB PO SCH ×2 (08:58→17:04)
[2020-07-26] MEDS: DULoxetine HCL 30 MG CAP PO SCH (08:58)
[2020-07-26] MEDS: LOSARTAN POTASSIUM 50 MG TAB PO SCH (08:58)
[2020-07-26] MEDS: FLUTICASONE/VILANTEROL 100/25MCG 14 PUFFS/INHALER INH SCH (08:59)
[2020-07-26] MEDS: UMECLIDINIUM BROMIDE 62.5MCG/BLISTER 7 PUFFS/INHALER INH SCH (08:59)
[2020-07-26] MEDS ORDERED: LANTUS PER UNIT CHARGE SQ ONE (09:00)
[2020-07-26] MEDS: INSULIN ASPART 100 UNITS/ML 3 ML PEN SC SCH ×3 (09:00→17:12)
--- NOTE | 2020-07-26 09:10 | Discharge Summary ---
Date of Service July 26, 2020 Admission HPI Per Admitting Provider This is a 70-year-old male presents with chronic persistent back and bilateral leg pain. Failing since course of nonoperative care is here for surgical invention. Principal Diagnosis Lumbar spinal stenosis with spondylolisthesis and neurogenic claudication Discharge Data Allergies Allergy/AdvReac Type Severity Reaction Status Date / Time No Known Allergies Allergy Verified 07/22/20 08:22 Consultations 07/22/20 14:22 Consult Hospitalist Routine Procedures Performed Operation Date: 07/22/20 09:25 Actual Procedures p L4-5 Decompression and Fusion, Interbody fusion, Spinal Cord Monitoring - Rodolfo Meyer DO Ordered Studies 07/22/20 09:25 FL lumbar spine 2-3V Routine Hospital Course (1) Neurogenic claudication due to lumbar spinal stenosis: Patient with lumbar decompression fusion trial as well as leg orthopedic for possibly. Postoperative course was slow but steady. He progressed daily RENÉ drain decreasing probably. Pain controlled leg strength improved. Substrates d ischarge with home health. Discharge orders instructions from the chart for further review. Total Time Total Time Spent Total Time Spent (In Minutes): 20 minutes Discharge Plan Discharge Items Patient Disposition: Home - Home Health Services Reason For Visit: Spinal Stenosis, Lumbar Region with Neurogenic Cla Discharge Diagnosis: Lumbar spinal stenosis with neurogenic claudication Activity: As commented below Non-emergency contact: Primary Care Provider Call non-emergency contact if: you have any medication questions Follow-up/Referrals: Rahat Strickland MD [Primary Care Provider] - Diet: Regular Addtl Attending Provider Instructions: ACTIVITY RECOMMENDATIONS: SELF CARE INSTRUCTIONS AFTER THORACIC/LUMBAR FUSIONS 1. You may walk to your tolerance. It is good exercise for your legs and back. Expect some back and intermittent leg aches and pains. 2. You may perform "counter-top" level activities (make a sandwich, pramod with a project, etc.). 3. No bending or lifting of more than 10 pounds or back twisting of any nature (roll like a log when turning in bed). 4. You may ride in a car for 20-30 minutes at a time. No driving until after your first visit with your doctor. 5. Frequent changes of position and restricting sitting to 30 minutes at a time will help limit the amount of back spasms and stiffness you may experience. 6. You may discontinue the use of ambulatory aids (cane, crutches, etc.) once your strength and confidence allow. 7. You may watch train assembler the shower and let water strike your incision when you arrive home at least once daily. Do not take a tub bath, sit in a hot tub or go into a swimming pool until after your first recheck in the office. SPECIAL CARE INSTRUCTIONS: VERY IMPORTANT TO READ AND REVIEW A. Your surgical incision has been closed with a cosmetic suture under the skin that will dissolve in about 6 weeks. In 14 days, you can use a pair of clean scissors and cut the suture that is left outside of the skin at the ends of your incision. 1. The small skin tapes can be removed 7 days after surgery if they have not fallen off by that point. 2. You may keep the wound open to air as much as possible to promote healing after post-op day number 5 unless told otherwise by your doctor. 3. If you think the wound looks like it is becoming infected (redness or worsening drainage) and/or you are experiencing fever, chill or worsening back pain and muscle spasms, contact the office so that we may evaluate you as soon as possible. B. Complications are uncommon, but please contact us if you have any signs or symptoms of: 1. wound infection (fever higher than 102.5 degrees F, redness, separation of wound, drainage, or increasing pain from the incision) 2. blood clots in legs (pain, swelling, redness and warmth in legs) 3. urinary tract infection (fever higher than 102.5 degrees F, burning upon urination or increased frequency of urination) 4. nerve problems (inability to walk on your toes or heels, numbness, loss of bowel or bladder control) 5. any other symptoms that concern you C. Please call the office at if you have any concerns or questions about your operation or recovery. D. No smoking! Smoking drastically decreases the chance of a solid fusion. E. Do not take any anti-inflammatory medications (Indocin, Advil, Motrin, Aspirin, Naprosyn, etc.) as these may inhibit the chance of a solid fusion. Tylenol is okay to take for pain. MANAGING PAIN AFTER SPINAL SURGERY 1. Narcotic medication is intended for short-term use and will be provided for surgical pain. Surgical pain usually lasts for a period of 4-6 weeks. Narcotic medication includes Percocet, Vicodin, Darvocet, Tylenol #3 or Lortab. 2. Longer-term pain is more appropriately treated with non-narcotic medication such as Tylenol ES. 3. Muscle spasm is not appropriately treated with narcotics. Muscle relaxers such as Soma, Flexeril or Skelaxin can be used along with Tylenol ES. 4. Remember that we all live with some "aches and pains". This is not unusual or uncommon after an injury or as we get older. a. Back pain is expected and may include muscle spasms for 4 to 6 weeks after surgery. The pain should gradually improve. If the pain worsens for no apparent reason, please contact the office. b. Intermittent leg pain may also be experienced and should not be concerned about unless it worsens for no apparent reason. If so, please contact the office. 5. We will provide appropriate medication within the normal guidelines of their prescribed use. We will also be very cautious and aware of potential abuse and extended duration of patients' medication needs. a. Pain medications are for your comfort and to assist with sleep and rest so that the tissue can heal. They are not provided in order to return to normal activity and should not be used through the day. To do so or worsening pain at night can result from ongoing tissue damage and development of tolerance to the prescribed medicine. 6. Please allow 2-3 days to process refills. Prescriptions will not be mailed but must be picked up at the office. FOLLOW UP VISIT: Keep your scheduled follow-up appointment. Any questions, please call the office at . Pending Studies at Discharge: No Stand-Alone Forms: My [facility], Smoking Cessation Medications and DC Order Prescriptions: New oxycodone 5 mg tablet 5 mg PO Q6H PRN (Reason: pain, severe) Qty: 30 RF: 0 tramadol 50 mg tablet 50 mg PO Q6H PRN (Reason: pain, moderate) Qty: 30 RF: 0 cyclobenzaprine 10 mg Tablet 10 mg PO Q8 PRN (Reason: muscle spasm) Qty: 20 RF: 0 Continued losartan 50 mg Tablet 50 mg PO QAM RF: 0 atorvastatin 80 mg Tablet 80 mg PO HS RF: 0 diclofenac sodium 3 % Gel 1 applic TOPICAL BID RF: 0 ipratropium-albuterol 0.5 mg-3 mg(2.5 mg base)/3 mL Solution For Nebulization 3 ml INHALATION Q4H PRN (Reason: SHORT OF BREATH) RF: 0 aspirin 81 mg Tablet,Delayed Release (Dr/Ec) 81 mg PO QAM RF: 0 tramadol 50 mg Tablet 50 mg PO TID PRN (Reason: Pain) RF: 0 bisoprolol fumarate 5 mg Tablet 5 mg PO Q2D RF: 0 metformin 1,000 mg Tablet 1,000 mg PO BID RF: 0 furosemide 20 mg Tablet 20 mg PO QAM RF: 0 albuterol sulfate 90 mcg/actuation Hfa Aerosol Inhaler 1 inh INHALATION QID PRN (Reason: SHORT OF BREATH) RF: 0 duloxetine 30 mg Capsule,Delayed Release(Dr/Ec) 30 mg PO QAM RF: 0 gabapentin 300 mg Tablet 600 mg PO Q8H RF: 0 budesonide-formoterol [Symbicort] 160-4.5 mcg/actuation Hfa Aerosol Inhaler 2 puff INHALATION BID RF: 0 Incruse Ellipta 62.5 mcg/actuation Blister With Device 1 inh INHALATION QAM RF: 0 Jardiance 10 mg Tablet 10 mg PO QAM RF: 0 Discharge Orders: Discharge Order (Routine); Ordered 07/26/20 Ordered By: Rodolfo Ramos/Other Patient Handouts: Managing Type 2 Diabetes, A1C Admission Data Admit Date/Time: 07/22/20 12:47 Attending Provider: Rodolfo Meyer Admit Provider: Rodolfo Meyer Primary Care Provider: Rahat Strickland Other Providers: Candelaria Hawkins ; Corey Abbasi ; [facility],Home Healthcare
[2020-07-26] MEDS ORDERED: bisacodyL 10 MG SUPP PR STA (14:12)
--- NOTE | 2020-07-26 14:13 | Hospitalist Progress Note ---
Date of Service July 26, 2020 Assessment & Plan (1) Status post lumbar surgery: Post op day# 3 S/P L3-L5 decompression & fusion by Dr Meyer Pain management/DVT prophylaxis as per primary team. Continue to work with PT/OT. Hemoglobin remains stable. Likely to be discharged tomorrow once pain is better controlled. Consipation On senna/Colace, order MiraLAX and Dulcolax suppository Acute blood loss anemia/dilutional anemia post-op stable (2) CAD (coronary artery disease): S/P stents x 3 No CP, SOB -Continue aspirin, bisoprolol, losartan, atorvastatin (3) Hypertension: -Continue losartan, bisoprolol continue holding lasix for now (4) Diabetes mellitus, type 2: A1c: 6.6 on 06/27/20 -Hold home oral medications -Glycemic pharmacy on board, appreciate glycemic management (5) Chronic obstructive pulmonary disease: No signs acute exacerbation -Continue home inhalers DVT Prophylaxis -SCDs per ortho Disposition per primary service Follows with Dr Strickland for routine care Thank you for this consultation. We will follow the patient with you during their hospital stay. You can reach a member of the [facility] Hospitalist Team 24/09 via pager @ [phone]. Admission and Anticipated Discharge Date Admission Date: July 22, 2020 Subjective Lying in bed. Reports pain continues to be an issue. Have not had bowel movement yet. Rest of the review of system is negative. Review of Systems Review of Systems: All systems reviewed & are unremarkable except as noted in HPI & below Physical Exam Physical Exam: General: A&Ox3 HENT: NCAT, MMM, EOMI Eyes: PERRLA Neck: Supple, normal range of motion CVS: normal rate and rhythm Resp: b/l good breath sounds Abdomen: Soft, distended, non-tender Extremities: No c/c/e Neuro: face symmetric, strength grossly equal, no focal deficit Skin: warm and dry, no rashes/lesions/errythema MSK: normal ROM, no joint swelling/erythema Back: dressing is intact Results & Data Results & Data ([facility]) Vital Signs (Past 12 Hours) Vital Signs Temp Pulse Resp BP BP Pulse Ox 07/26/20 13:51 37 C 72 17 138/84 115/72 94 07/26/20 07:41 37 C 72 17 115/72 94
[2020-07-26] MEDS ORDERED: POLYETHYLENE (MIRALAX) 17 GM PACK PO SCH (14:15)
== END 2020-07-26 17:45 | DRG 454 ==
LOC: ASU 07:54 → 3E 12:47